=== PATIENT | female | born 1955 | race Caucasian/White ===

== ENCOUNTER → 2023-06-21 15:39 | Outpatient (CLI) | payer MEDICARE, OTHER, SELFPAY ==
--- NOTE | 2023-06-21 15:42 | DI.RAD.S_ITS ---
PROCEDURE: XR CHEST 2V INDICATIONS: ALMEIDA, eval for fluid collection or pna TECHNIQUE: 2 views of the chest were acquired. COMPARISON: None. FINDINGS: Surgical changes and devices: Cholecystectomy clips. Lungs and pleura: Moderate-sized right and trace left pleural effusions. Right basilar consolidation. No pneumothorax. Mediastinum: Mediastinal contours are normal. Heart size is normal. Bones and chest wall: No suspicious bony abnormalities. Soft tissues appear unremarkable. IMPRESSION: Moderate-sized right and trace left pleural effusions. Right basilar consolidation which could represent atelectasis, aspiration or pneumonia. Dictated by: Vero Moore MD, PhD on 06/21/2023 at 16:07 Approved by: Vero Moore MD, PhD on 06/21/2023 at 16:08
== END ==
PROVIDERS: Referring Provider Internal Medicine Critical Care Medicine; Visit Provider Internal Medicine Critical Care Medicine
DX: J90 Pleural effusion, not elsewhere classified (principal); J96.11 Chronic respiratory failure with hypoxia; J44.1 Chronic obstructive pulmonary disease with (acute) exacerbation; Z72.0 Tobacco use
CPT/HCPCS: 71046; 99214

== ENCOUNTER → 2023-06-22 08:21 | Outpatient (CLI) | payer MEDICARE, SELFPAY ==
--- NOTE | 2023-06-22 | PATH_ITS ---
Note [facility] Accession Number: [id number] TESTS RESULT FLAG UNITS REF RANGE LAB Clinician Provided Cytology Information No. of containers..01 Other (Miscellaneous) Source: PLEURAL FLUID DIAGNOSIS: PLEURAL FLUID NEGATIVE FOR MALIGNANT CELLS. THIS INTERPRETATION INCLUDES EVALUATION OF A CELL BLOCK. COMMENT: Dr. Carola Kimball (cytopathologist) reviewed this case and concurs with the diagnosis. Pathologist ICD10: J90 Signed out by: Johanne Driscoll MD, Pathologist NPI- [id number] Performed by: Len Daniels, Orthodontic Treatment Coordinator ([facility]) Gross description: 60 CC, YELLOW, CLOUDY RECEIVED: FRESH IN BLUE CAP CONTAINER.VO /VDU 06/26/2023 0555 Local FLAG LEGEND: L-Low Normal,H-High Normal,LL-Alert Low,HH-Alert High <-Panic Low,>-Panic High,A-Abnormal,AA-Critical Abnormal Performed at: 01 =Z [facility] [address], [place] [address] Kelvin López MD, Performed at: 01 [facility] [address], [place], [place] [id number] MD Kelvin López MD Phone: [phone]
--- NOTE | 2023-06-22 | DI.RAD.S_ITS ---
PROCEDURE: XR CHEST 2V INDICATIONS: POST THORACENTESIS TECHNIQUE: 2 views of the chest were acquired. COMPARISON: [facility], , XR CHEST 2V, 06/21/2023, 15:48. FINDINGS: Surgical changes and devices: None. Lungs and pleura: No right pneumothorax post thoracentesis. Small right pleural effusion, decreased. Small left pleural effusion. Mediastinum: Mediastinal contours are unchanged. Heart size is within normal limits. Bones and chest wall: No suspicious bony abnormalities. Soft tissues appear unremarkable. IMPRESSION: No pneumothorax post right thoracentesis. Small bilateral pleural effusions. Dictated by: Pranav Livingston M.D. on 06/22/2023 at 9:42 Approved by: Pranav Livingston M.D. on 06/22/2023 at 9:44
--- NOTE | 2023-06-22 08:30 | DI.US.S_ITS ---
PROCEDURE: US THORACENTESIS INDICATIONS: RIGHT PLEURAL EFFUSION TECHNIQUE: The indications, alternatives, benefits, risks, and complications of the procedure were explained to the patient. Written informed consent was obtained and placed in the chart. The chest was examined sonographically, and an appropriate site was chosen for thoracentesis. The skin was prepared and draped in the usual sterile fashion, and 1% lidocaine was infiltrated from the skin down through the pleural surface. A 19-gauge catheter-covered needle was then introduced into the pleural space, the catheter was advanced and the needle was withdrawn, and thereafter pleural fluid was aspirated. The catheter was then removed and a dressing was applied. COMPARISON: [facility], CR, XR CHEST 2V, 06/22/2023, 9:24. [facility], CR, XR CHEST 2V, 06/21/2023, 15:48. FINDINGS: Access site: Right hemithorax. Needle: One-Step centesis catheter with introducer needle. Fluid volume and description: Straw-colored 1725 cc. Fluid sent for diagnostic testing: Yes, multiple labs ordered. Medications: 1% lidocaine for local anaesthesia. Complications: None. Exam was well tolerated. Postprocedural chest x-ray is negative for pneumothorax. IMPRESSION: Successful ultrasound-guided diagnostic and therapeutic right thoracentesis. Dictated by: Pranav Livingston M.D. on 06/22/2023 at 10:46 Approved by: Pranav Livingston M.D. on 06/22/2023 at 10:48
[2023-06-22 11:14] LABS: Body Fluid Red Blood Cells 1157 /uL; Body Fluid Tot Nucleated Cells 1162 /uL
[2023-06-22 11:58] LABS: Body Fluid Appearance CLEAR; Body Fluid Color YELLOW
[2023-06-22 11:59] LABS: Body Fluid Clotted? NO CLOTS PRESENT; Eosinophils Body Fluid 0 %; Mononuclear WBC Body Fluid 89 %; Other Cells Body Fluid 0 %; Polynuclear WBC Body Fluid 11 %
[2023-06-23 03:09] LABS: Labcorp LDH, Body Fluid 70 IU/L (.); Labcorp Total Prot, Body Fluid 1.7 g/dL (.)
== END ==
PROVIDERS: Referring Provider Internal Medicine Critical Care Medicine; Visit Provider Internal Medicine Critical Care Medicine
DX: J90 Pleural effusion, not elsewhere classified (principal); J96.10 Chronic respiratory failure, unspecified whether with hypoxia or hypercapnia
CPT/HCPCS: 32555; 71046; 83615; 84157; 87070; 87075; 87205; 89051

== ENCOUNTER → 2023-06-29 14:09 | Outpatient (CLI) | payer OTHER, SELFPAY ==
--- NOTE | 2023-06-29 14:13 | DI.RAD.S_ITS ---
PROCEDURE: XR CHEST 2V INDICATIONS: Pleural effusion, s/p thoracentesis, eval for change TECHNIQUE: 2 views of the chest were acquired. COMPARISON: [facility], CR, XR CHEST 2V, 06/22/2023, 9:24. [facility], CR, XR CHEST 2V, 06/21/2023, 15:48. FINDINGS: Surgical changes and devices: None. Lungs and pleura: Lungs are somewhat atelectatic at each lung base, right greater than left. A subpulmonic left pleural effusion has slightly improved. A subpulmonic right pleural effusion has worsened with reference to the most recent comparison chest plain films dated . No pneumothorax. Mediastinum: Mediastinal contours are normal. Heart size is normal. Bones and chest wall: No suspicious bony abnormalities. Soft tissues appear unremarkable. IMPRESSION: Bilateral subpulmonic pleural effusions greater on the right than the left. This has somewhat worsened on the right and slightly improved on the left. No pneumothorax. It is unclear from the clinical history provided if a thoracentesis procedure was performed earlier same day. Dictated by: Max Esparza M.D. on 06/29/2023 at 15:13 Approved by: Max Esparza M.D. on 06/29/2023 at 15:15
[2023-06-29 16:06] LABS: Alanine Aminotransferase 26 IU/L (<35); Albumin 3.5 g/dL (3.5-5.0); Albumin Globulin Ratio 1.3 (1.0-2.8); Alkaline Phosphatase 98 U/L (38-126); Aspartate Aminotransferase 29 IU/L (14-36); BUN Creatinine Ratio 18.3 (6-22); Bilirubin Total 0.8 mg/dL (0.2-1.3); Blood Urea Nitrogen 15 mg/dL (7-17); Calcium 9.7 mg/dL (8.4-10.2); Carbon Dioxide 29 mmol/L (22-32); Chloride 98 mmol/L (98-107); Estimated Glomerular Filt Rate > 60 mL/min (>60); Globulin 2.8 g/dL (1.7-4.1); Glucose 358 mg/dL (80-110); HEMOLYSIS < 15 (0-50); Potassium 4.8 mmol/L (3.4-5.1); Sodium 137 mmol/L (137-145); Total Protein 6.3 g/dL (6.3-8.2)
== END ==
LOC: RAD 14:12
PROVIDERS: Referring Provider Internal Medicine Critical Care Medicine; Visit Provider Internal Medicine Critical Care Medicine
DX: J90 Pleural effusion, not elsewhere classified (principal)
CPT/HCPCS: 36415; 71046; 80053

== ENCOUNTER 2023-06-30 14:25 | Inpatient (IN) | payer OTHER, SELFPAY ==
[2023-06-30] VITALS (21 sets, daily range): BP systolic 121–163; BP diastolic 70–94; PULSE 99–116; RESP 0–30; TEMP 35.9; O2SAT 92–97; BMI 29.5; BMI 27.9
--- NOTE | 2023-06-30 14:40 | DI.RAD.S_ITS ---
PROCEDURE: XR CHEST 1V INDICATIONS: Short of breath hx of effusion TECHNIQUE: One view of the chest was acquired. COMPARISON: [facility], , XR CHEST 2V, 06/29/2023, 14:27. [facility], CR, XR CHEST 2V, 06/22/2023, 9:24. [facility], US, US THORACENTESIS, 06/22/2023, 8:46. [facility], CR, XR CHEST 2V, 06/21/2023, 15:48. FINDINGS: Surgical changes and devices: None. Lungs and pleura: There is a moderate right-sided pleural effusion. There is a small left-sided pleural effusion. Low lung volumes can be seen. Generalized interstitial prominence can be seen. On this semiupright study, no large pneumothorax can be seen. Mediastinum: Mediastinal contours appear normal. Heart size is moderately enlarged. Atherosclerotic calcification of the aortic arch is noted. Bones and chest wall: No suspicious bony lesions. Age-appropriate bony degenerative changes are seen. Overlying soft tissues appear unremarkable. IMPRESSION: Bilateral pleural effusions are seen, right larger than left. Cardiomegaly and interstitial prominence can be seen. CHF is suspected. Dictated by: Chace Hong M.D. on 06/30/2023 at 14:18 Approved by: Chace Hong M.D. on 06/30/2023 at 14:19
--- NOTE | 2023-06-30 14:54 | ED_ITS ---
HPI - General Adult <Amrik Vicente DO - Last Filed: 07/01/23 07:06> General Chief complaint: Shortness of Breath/Dyspnea Stated complaint: post fluid drained from lungs/needed again Time Seen by Provider: 06/30/23 14:34 Source: patient and family Mode of arrival: Wheelchair History of Present Illness HPI narrative: Patient is a 67-year-old female. She states that for the past several weeks/months she has been having issues with shortness of breath and pleural effusions. She states it all started several months ago when she developed pneumonia. She was treated with antibiotics. Patient is were not getting better. She does not have a primary doctor but she has seen pulmonology. One week ago she had a thoracentesis where approximately 1700 cc of fluid was removed. She states she felt better afterwards. Her next appointment with pulmonology is approximately 10 days from now. She had an outpatient chest x- ray done yesterday. Shows reaccumulation of fluid. She is having shortness of breath, dyspnea on exertion, orthopnea. No fevers. No cough. She does have oxygen at home however still short of breath despite this. Related Data Home Medications Medication Instructions Recorded Confirmed albuterol sulfate 90 mcg/actuation 2 puff inhalation Q4-6H PRN Dyspnea 06/21/23 06/30/23 aerosol inhaler (Ventolin HFA) budesonide 0.5 mg/2 mL suspension 0.5 mg inhalation BID 06/21/23 06/30/23 for nebulization metformin 500 mg tablet 500 mg PO BID 06/21/23 06/30/23 Previous Rx's Medication Instructions Recorded prednisone 10 mg tablet 10 mg PO DIRECTED #18 tabs 06/21/23 furosemide 20 mg tablet 20 mg PO DAILY #30 tabs 06/29/23 Allergies Allergy/AdvReac Type Severity Reaction Status Date / Time No Known Drug Allergies Allergy Unverified 06/29/23 13:07 Review of Systems <DO Fabián Becker Last Filed: 07/01/23 07:06> Review of Systems ROS Unobtainable: All systems reviewed & are unremarkable except as noted in HPI and below Patient History <DO Fabián Becker Last Filed: 07/01/23 07:06> Social History household members: significant other and family Smoking Status: Former smoker alcohol intake: current Smoking Status: Former smoker Substance Use Type: marijuana Exam <Amrik Vicente DO - Last Filed: 07/01/23 07:06> Initial Vital Signs Initial Vital Signs: Vital Signs Pulse Rate 116 H 06/30/23 14:31 Blood Pressure 150/86 H 06/30/23 14:31 Pulse Oximetry 93 06/30/23 14:31 HENMT Head: normal to inspection and normocephalic Resp Effort & Inspection: labored, no respiratory distress and tachypneic Cardio Rate: tachycardic Skin General: no rashes or lesions noted Neuro General: patient alert, patient awake and moves all extremities Extrem General: normal to inspection <Ravinder Avila MD - Last Filed: 07/01/23 01:09> Initial Vital Signs Initial Vital Signs: Vital Signs Pulse Rate 116 H 06/30/23 14:31 Blood Pressure 150/86 H 06/30/23 14:31 Pulse Oximetry 93 06/30/23 14:31 Course <Amrik Vicente DO - Last Filed: 07/01/23 07:06> Orders Ordered: Acetaminophen (Acetaminophen 325 Mg Tablet) 650 mg PO Q6H PRN PRN Reason: Fever/Mild Pain (1-3) Albuterol/Ipratropium (Albuterol/Ipratropium 3 Ml Ampul) 3 ml INH BID TAM Budesonide (Budesonide 0.5 Mg/2 Ml Neb) 0.5 mg INH BID TAM Docusate Sodium (Docusate 100 Mg Capsule) 100 mg PO BID PRN PRN Reason: constipation Enoxaparin Sodium (Enoxaparin 40 Mg/0.4 Ml Syringe) 40 mg SUBCUT DAILY TAM Furosemide (Furosemide 20 Mg Tablet) 60 mg PO DAILY TAM Magnesium Sulfate (Magnesium Sulfate) 2 gm in 50 mls @ 25 mls/hr IV NOW ONE Stop: 07/01/23 08:48 Influenza Virus Vaccine (Influenza Hd Vaccine 0.7 Ml Syringe) 0.7 ml IM .ONCE ONE Stop: 07/02/23 09:01 Metformin HCl (Metformin Hcl 500 Mg Tablet) 500 mg PO BIDWM TAM Naloxone HCl (Naloxone 0.4 Mg/Ml Vial) 0.2 mg IV Q2MIN PRN PRN Reason: Opiate Reversal Nicotine (Nicotine 21 Mg Patch) 21 mg TOP DAILY PRN PRN Reason: smoker Ondansetron HCl (Ondansetron 4 Mg Odt) 4 mg PO Q8HR PRN PRN Reason: Nausea And Vomiting Sennosides (Sennosides 8.6 Mg Tablet) 17.2 mg PO BEDTIME TAM Sodium Chloride (Sodium Chloride 0.9% Flush) 10 ml IV PRN PRN PRN Reason: Flush Sodium Chloride (Sodium Chloride 0.9% Flush) 10 ml IV BID TAM Discontinued Medications Furosemide 60 mg/ Sodium (Chloride) 56 mls @ 112 mls/hr IV NOW ONE Stop: 06/30/23 15:50 Last Infusion: 06/30/23 16:48 Dose: Infused Documented By: Admin: 06/30/23 16:10 Dose: 112 mls/hr Documented By: ANA Influenza Virus Vaccine (Influenza Hd Vaccine 0.7 Ml Syringe) 0.7 ml IM .ONCE ONE Stop: 07/01/23 00:55 Last Admin: 07/01/23 01:03 Dose: Not Given Documented By: BESSY Vital Signs Vital signs: Vital Signs - 8 hr 06/30/23 17:14 06/30/23 17:14 06/30/23 17:30 Pulse Rate 116 H 103 H Respiratory Rate 0 L 28 H Blood Pressure 137/86 Pulse Oximetry 95 96 06/30/23 17:30 06/30/23 18:00 06/30/23 18:00 Pulse Rate 103 H Respiratory Rate 29 H Blood Pressure 128/85 137/85 Pulse Oximetry 95 06/30/23 18:30 06/30/23 18:30 06/30/23 18:49 Pulse Rate 102 H Respiratory Rate 30 H Blood Pressure 147/88 H 129/94 H Pulse Oximetry 95 06/30/23 18:49 06/30/23 19:00 06/30/23 19:00 Pulse Rate 105 H 99 H Respiratory Rate 27 H Blood Pressure 128/77 Pulse Oximetry 94 94 06/30/23 19:30 06/30/23 19:30 06/30/23 20:00 Pulse Rate 101 H 105 H Respiratory Rate 30 H 28 H Blood Pressure 141/79 H Pulse Oximetry 94 92 06/30/23 20:00 06/30/23 20:30 06/30/23 20:30 Pulse Rate 105 H Respiratory Rate 25 H Blood Pressure 151/83 H 134/70 Pulse Oximetry 94 <Ravinder Avila MD - Last Filed: 07/01/23 01:09> Orders Ordered: Acetaminophen (Acetaminophen 325 Mg Tablet) 650 mg PO Q6H PRN PRN Reason: Fever/Mild Pain (1-3) Albuterol/Ipratropium (Albuterol/Ipratropium 3 Ml Ampul) 3 ml INH BID TAM Budesonide (Budesonide 0.5 Mg/2 Ml Neb) 0.5 mg INH BID TAM Docusate Sodium (Docusate 100 Mg Capsule) 100 mg PO BID PRN PRN Reason: constipation Enoxaparin Sodium (Enoxaparin 40 Mg/0.4 Ml Syringe) 40 mg SUBCUT DAILY TAM Furosemide (Furosemide 20 Mg Tablet) 60 mg PO DAILY TAM Magnesium Sulfate (Magnesium Sulfate) 2 gm in 50 mls @ 25 mls/hr IV NOW ONE Stop: 07/01/23 08:48 Influenza Virus Vaccine (Influenza Hd Vaccine 0.7 Ml Syringe) 0.7 ml IM .ONCE ONE Stop: 07/02/23 09:01 Metformin HCl (Metformin Hcl 500 Mg Tablet) 500 mg PO BIDWM TAM Naloxone HCl (Naloxone 0.4 Mg/Ml Vial) 0.2 mg IV Q2MIN PRN PRN Reason: Opiate Reversal Nicotine (Nicotine 21 Mg Patch) 21 mg TOP DAILY PRN PRN Reason: smoker Ondansetron HCl (Ondansetron 4 Mg Odt) 4 mg PO Q8HR PRN PRN Reason: Nausea And Vomiting Sennosides (Sennosides 8.6 Mg Tablet) 17.2 mg PO BEDTIME TAM Sodium Chloride (Sodium Chloride 0.9% Flush) 10 ml IV PRN PRN PRN Reason: Flush Sodium Chloride (Sodium Chloride 0.9% Flush) 10 ml IV BID TAM Discontinued Medications Furosemide 60 mg/ Sodium (Chloride) 56 mls @ 112 mls/hr IV NOW ONE Stop: 06/30/23 15:50 Last Infusion: 06/30/23 16:48 Dose: Infused Documented By: Admin: 06/30/23 16:10 Dose: 112 mls/hr Documented By: ANA Influenza Virus Vaccine (Influenza Hd Vaccine 0.7 Ml Syringe) 0.7 ml IM .ONCE ONE Stop: 07/01/23 00:55 Last Admin: 07/01/23 01:03 Dose: Not Given Documented By: BESSY Vital Signs Vital signs: Vital Signs - 8 hr 06/30/23 17:14 06/30/23 17:14 06/30/23 17:30 Pulse Rate 116 H 103 H Respiratory Rate 0 L 28 H Blood Pressure 137/86 Pulse Oximetry 95 96 06/30/23 17:30 06/30/23 18:00 06/30/23 18:00 Pulse Rate 103 H Respiratory Rate 29 H Blood Pressure 128/85 137/85 Pulse Oximetry 95 06/30/23 18:30 06/30/23 18:30 06/30/23 18:49 Pulse Rate 102 H Respiratory Rate 30 H Blood Pressure 147/88 H 129/94 H Pulse Oximetry 95 06/30/23 18:49 06/30/23 19:00 06/30/23 19:00 Pulse Rate 105 H 99 H Respiratory Rate 27 H Blood Pressure 128/77 Pulse Oximetry 94 94 06/30/23 19:30 06/30/23 19:30 06/30/23 20:00 Pulse Rate 101 H 105 H Respiratory Rate 30 H 28 H Blood Pressure 141/79 H Pulse Oximetry 94 92 06/30/23 20:00 06/30/23 20:30 06/30/23 20:30 Pulse Rate 105 H Respiratory Rate 25 H Blood Pressure 151/83 H 134/70 Pulse Oximetry 94 Medical Decision Making <Amrik Vicente DO - Last Filed: 07/01/23 07:06> Medical Records Medical records reviewed: Yes I reviewed the patient's medical records. Lab Data Lab results reviewed: Yes I reviewed the patient's lab results. 07/01/23 05:10 07/01/23 05:10 Labs: Lab Results 06/30/23 06/30/23 Range/Units 16:45 18:50 WBC 7.5 (4.5-11.0) X10^3/uL RBC 5.07 (4.0-5.2) X10^6/uL Hgb 14.8 (12.0-16.0) g/dL Hct 45.4 (36-46) % MCV 89.6 (80-100) fL MCH 29.3 (26-34) PG MCHC 32.6 (30-36) % RDW 14.7 (11.6-14.8) % Plt Count 256 (150-400) X10^3/uL Neut % (Auto) 69.2 (50-75) % Lymph % (Auto) 24.0 L (25-40) % Kern % (Auto) 5.4 (3-14) % Eos % (Auto) 0.9 L (2-4) % Baso % (Auto) 0.5 (0-2) % Neut # (Auto) 5200 (2441-5799) /uL Lymph # (Auto) 1800 (6267-3827) /uL Kern # (Auto) 400 (0-900) /uL Eos # (Auto) 100 (0-450) /uL Baso # (Auto) 0 (0-100) /uL PT 12.5 (9.4-12.5) SECONDS INR 1.1 (0.9-1.3) APTT 30 (25.1-36.5) SECONDS Sodium 138 (137-145) mmol/L Potassium 5.1 (3.4-5.1) mmol/L Chloride 99 (98-107) mmol/L Carbon Dioxide 31 (22-32) mmol/L BUN 14 (7-17) mg/dL Creatinine 0.88 (0.52-1.04) mg/dL Estimated GFR > 60 (>60) mL/min BUN/Creatinine Ratio 15.9 (6-22) Glucose 294 H (80-110) mg/dL Calcium 9.7 (8.4-10.2) mg/dL Total Bilirubin 0.8 (0.2-1.3) mg/dL AST 28 (14-36) IU/L ALT 28 (<35) IU/L Alkaline Phosphatase 105 (38-126) U/L Total Creatine Kinase 38 41 (30-135) U/L Troponin I 0.064 H 0.068 H (0.01-0.034) ng/mL NT-Pro-B Natriuret Pep 4810 H (<125) pg/mL Total Protein 6.9 (6.3-8.2) g/dL Albumin 3.7 (3.5-5.0) g/dL Globulin 3.2 (1.7-4.1) g/dL Albumin/Globulin Ratio 1.2 (1.0-2.8) Lipase 114 (23-300) U/L Imaging Data Chest x-ray: Radiologist's Impression: ROCEDURE: XR CHEST 1V INDICATIONS: Short of breath hx of effusion TECHNIQUE: One view of the chest was acquired. COMPARISON: [facility], CR, XR CHEST 2V, 06/29/2023, 14:27. [facility], CR, XR CHEST 2V, 06/22/2023, 9:24. [facility], US, US THORACENTESIS, 06/22/2023, 8:46. [facility], CR, XR CHEST 2V, 06/21/2023, 15:48. FINDINGS: Surgical changes and devices: None. Lungs and pleura: There is a moderate right-sided pleural effusion. There is a small left-sided pleural effusion. Low lung volumes can be seen. Generalized interstitial prominence can be seen. On this semiupright study, no large pneumothorax can be seen. Mediastinum: Mediastinal contours appear normal. Heart size is moderately enlarged. Atherosclerotic calcification of the aortic arch is noted. Bones and chest wall: No suspicious bony lesions. Age-appropriate bony degenerative changes are seen. Overlying soft tissues appear unremarkable. IMPRESSION: Bilateral pleural effusions are seen, right larger than left. Cardiomegaly and interstitial prominence can be seen. CHF is suspected. ECG Data Attestation: I personally reviewed and interpreted this ECG as follows: Interpretation: Sinus tachycardia Ventricular rate 106 Normal axis Normal QRS Normal QTC No ST T wave changes MDM Narrative Medical decision making narrative: Patient does have return of the pleural effusions. Review of the medical record shows that the fluid from the last thoracentesis shows it is transudative. There was some concern about CHF although the patient does not have a specific diagnosis of this. Her agent telegrapher started her on Lasix although today was the 1st day that she took this. She took 20 mg this morning. Patient is hypoxic on room air with oxygen saturations in the upper 80s. She was placed back on her oxygen at 2 L by nasal cannula. She was very dyspneic on exertion and has orthopnea. No lower extremity swelling. No chest discomfort. EKG shows no ischemic changes. Does have an elevation in her BNP. Troponin also slightly elevated however this very well could be because of fluid overload. I did discuss the case with on-call pulmonology. Unfortunately she does not rotate here at this facility. We do not have ability to obtain thoracentesis over the weekend. Did discuss the case with Dr. Min hospitalist on-call. He would like a repeat troponin and potentially admission to the hospital for diuresis and if patient does not improve then thoracentesis on Sunday. Care turned over to Dr. Avila to follow up on repeat troponin and disposition. <Ravinder Avila MD - Last Filed: 07/01/23 01:09> Differential Diagnosis Differential Diagnosis: Pneumonia, pneumothorax, pleural effusion, mass, viral syndrome Lab Data Lab results narrative: Diagnostic laboratory testing within normal limits/nonactionable. Labs: Lab Results 06/30/23 06/30/23 Range/Units 16:45 18:50 WBC 7.5 (4.5-11.0) X10^3/uL RBC 5.07 (4.0-5.2) X10^6/uL Hgb 14.8 (12.0-16.0) g/dL Hct 45.4 (36-46) % MCV 89.6 (80-100) fL MCH 29.3 (26-34) PG MCHC 32.6 (30-36) % RDW 14.7 (11.6-14.8) % Plt Count 256 (150-400) X10^3/uL Neut % (Auto) 69.2 (50-75) % Lymph % (Auto) 24.0 L (25-40) % Kern % (Auto) 5.4 (3-14) % Eos % (Auto) 0.9 L (2-4) % Baso % (Auto) 0.5 (0-2) % Neut # (Auto) 5200 (2753-6486) /uL Lymph # (Auto) 1800 (7426-2094) /uL Kern # (Auto) 400 (0-900) /uL Eos # (Auto) 100 (0-450) /uL Baso # (Auto) 0 (0-100) /uL PT 12.5 (9.4-12.5) SECONDS INR 1.1 (0.9-1.3) APTT 30 (25.1-36.5) SECONDS Sodium 138 (137-145) mmol/L Potassium 5.1 (3.4-5.1) mmol/L Chloride 99 (98-107) mmol/L Carbon Dioxide 31 (22-32) mmol/L BUN 14 (7-17) mg/dL Creatinine 0.88 (0.52-1.04) mg/dL Estimated GFR > 60 (>60) mL/min BUN/Creatinine Ratio 15.9 (6-22) Glucose 294 H (80-110) mg/dL Calcium 9.7 (8.4-10.2) mg/dL Total Bilirubin 0.8 (0.2-1.3) mg/dL AST 28 (14-36) IU/L ALT 28 (<35) IU/L Alkaline Phosphatase 105 (38-126) U/L Total Creatine Kinase 38 41 (30-135) U/L Troponin I 0.064 H 0.068 H (0.01-0.034) ng/mL NT-Pro-B Natriuret Pep 4810 H (<125) pg/mL Total Protein 6.9 (6.3-8.2) g/dL Albumin 3.7 (3.5-5.0) g/dL Globulin 3.2 (1.7-4.1) g/dL Albumin/Globulin Ratio 1.2 (1.0-2.8) Lipase 114 (23-300) U/L MDM Narrative Additional Information: Patient signed out from Dr. Vicente. Please see his note for continuity of care. Repeat troponin within normal limits and patient to be admitted here at [facility] for further evaluation and management. Discussed plan of care with patient and family. Patient stable at the time transfer to the floor Discharge Plan Departure Patient Disposition: Admitted As Inpatient Clinical Impression: Pleural effusion Dyspnea Qualifiers: Dyspnea type: unspecified Qualified Code(s): R06.00 - Dyspnea, unspecified Admit Date/Time: 06/30/23 20:46 Admit Provider: Dale Cano
[2023-06-30] MEDS: FUROSEMIDE 60 MG in SODIUM CHLORIDE 0.9% 50 ML 112 MG IV (16:10)
[2023-06-30 16:53] LABS: Add Manual Diff / Slide Review NO; Basophils Absolute Auto 0 /uL (0-100); Basophils Percent Auto 0.5 % (0-2); Eosinophils Absolute Auto 100 /uL (0-450); Eosinophils Percent Auto 0.9 % (2-4); Hematocrit 45.4 % (36-46); Hemoglobin 14.8 g/dL (12.0-16.0); Lymphocytes Absolute Auto 1800 /uL (1100-4500); Mean Corpuscular HGB Conc 32.6 % (30-36); Mean Corpuscular Hemoglobin 29.3 PG (26-34); Mean Corpuscular Volume 89.6 fL (80-100); Monocytes Absolute Auto 400 /uL (0-900); Monocytes Percent Auto 5.4 % (3-14); Neutrophils Absolute Auto 5200 /uL (1500-7000); Neutrophils Percent Auto 69.2 % (50-75); Platelet Count 256 X10^3/uL (150-400); Red Blood Cell Count 5.07 X10^6/uL (4.0-5.2); Red Cell Distribution Width 14.7 % (11.6-14.8); White Blood Cell Count 7.5 X10^3/uL (4.5-11.0)
[2023-06-30 17:00] LABS: INR 1.1 (0.9-1.3); Prothrombin Time 12.5 SECONDS (9.4-12.5)
[2023-06-30 17:03] LABS: Chloride 99 mmol/L (98-107); HEMOLYSIS < 15 (0-50); PTT Partial Thromboplastin Tim 30 SECONDS (25.1-36.5)
[2023-06-30 17:06] LABS: Alanine Aminotransferase 28 IU/L (<35); Albumin 3.7 g/dL (3.5-5.0); Albumin Globulin Ratio 1.2 (1.0-2.8); Alkaline Phosphatase 105 U/L (38-126); Aspartate Aminotransferase 28 IU/L (14-36); BUN Creatinine Ratio 15.9 (6-22); Bilirubin Total 0.8 mg/dL (0.2-1.3); Blood Urea Nitrogen 14 mg/dL (7-17); Calcium 9.7 mg/dL (8.4-10.2); Carbon Dioxide 31 mmol/L (22-32); Creatine Kinase 38 U/L (30-135); Estimated Glomerular Filt Rate > 60 mL/min (>60); Globulin 3.2 g/dL (1.7-4.1); Glucose 294 mg/dL (80-110); Lipase 114 U/L (23-300); Potassium 5.1 mmol/L (3.4-5.1); Sodium 138 mmol/L (137-145); Total Protein 6.9 g/dL (6.3-8.2)
[2023-06-30 17:17] LABS: NT-proBNP (BNP-Adult 18+) 4810 pg/mL (<125); Troponin I 0.064 ng/mL (0.01-0.034)
[2023-06-30 19:43] LABS: Creatine Kinase 41 U/L (30-135)
[2023-06-30 19:56] LABS: Troponin I 0.068 ng/mL (0.01-0.034)
--- NOTE | 2023-07-01 00:49 | PM.HP.1 ---
History of Present Illness History of Present Illness Chief complaint: post fluid drained from lungs/needed again Narrative: 67 y/o with PMH of smoking, HLD, DM, developed exertional dyspnea 2 months ago. It got progressively worse and she was seen in the outpatient clinic where she was prescribed albuterol and budesonide for suspected COPD or asthma. She did not have CXR or PFTs. Inhalers were not helpful. Referred to pulmonology, seen a week ago, diagnosed with Rt> lt pleural effusion, hypoxemia, sent home with oxygen and referred for thoracenthesis. > 1 L of transudate was removed, cytology was negative. Seen again by payloader machine operator who recommended PFTs once effusion improved, to determine if she really has COPD / asthma. She was suspected for CHF. Prescribed 20 mg of Lasix. Echocardiogram was recommended but pt did not have it done yet. Instead she is seen in the ED with worsening dyspnea, reaccumulating Rt pleural effusion. [facility] Social History household members: significant other and family Smoking Status: Former smoker alcohol intake: current Meds Home Medications and Allergies Home Medications Medication Instructions Recorded Confirmed Type albuterol sulfate 90 mcg/actuation 2 puff inhalation Q4-6H PRN Dyspnea 06/21/23 06/30/23 History aerosol inhaler (Ventolin HFA) budesonide 0.5 mg/2 mL suspension 0.5 mg inhalation BID 06/21/23 06/30/23 History for nebulization metformin 500 mg tablet 500 mg PO BID 06/21/23 06/30/23 History prednisone 10 mg tablet 10 mg PO DIRECTED #18 tabs 06/21/23 06/30/23 Rx furosemide 20 mg tablet 20 mg PO DAILY #30 tabs 06/29/23 06/30/23 Rx Allergies Allergy/AdvReac Type Severity Reaction Status Date / Time No Known Drug Allergies Allergy Unverified 06/29/23 13:07 Review of Systems Constitutional Comments: w/o sweats, fever, chills, weight changes Cardiovascular Comments: w/o palpitations or chest pain swollen legs Respiratory Comments: progressive exertional dyspnea and orthopnea without wheezing, coughing, hemoptysis Exam Vital Signs (past 8 hours): - 06/30/23 17:00 06/30/23 17:00 06/30/23 17:14 Temperature Pulse Rate 105 H 116 H Respiratory Rate 26 H 0 L Blood Pressure 147/88 H Pulse Oximetry 96 95 Oxygen Delivery Method Oxygen Flow Rate 06/30/23 17:14 06/30/23 17:30 06/30/23 17:30 Temperature Pulse Rate 103 H Respiratory Rate 28 H Blood Pressure 137/86 128/85 Pulse Oximetry 96 Oxygen Delivery Method Oxygen Flow Rate 06/30/23 18:00 06/30/23 18:00 06/30/23 18:30 Temperature Pulse Rate 103 H 102 H Respiratory Rate 29 H 30 H Blood Pressure 137/85 Pulse Oximetry 95 95 Oxygen Delivery Method Oxygen Flow Rate 06/30/23 18:30 06/30/23 18:49 06/30/23 18:49 Temperature Pulse Rate 105 H Respiratory Rate Blood Pressure 147/88 H 129/94 H Pulse Oximetry 94 Oxygen Delivery Method Oxygen Flow Rate 06/30/23 19:00 06/30/23 19:00 06/30/23 19:30 Temperature Pulse Rate 99 H 101 H Respiratory Rate 27 H 30 H Blood Pressure 128/77 Pulse Oximetry 94 94 Oxygen Delivery Method Oxygen Flow Rate 06/30/23 19:30 06/30/23 20:00 06/30/23 20:00 Temperature Pulse Rate 105 H Respiratory Rate 28 H Blood Pressure 141/79 H 151/83 H Pulse Oximetry 92 Oxygen Delivery Method Oxygen Flow Rate 06/30/23 20:30 06/30/23 20:30 06/30/23 21:00 Temperature Pulse Rate 105 H 106 H Respiratory Rate 25 H 23 Blood Pressure 134/70 Pulse Oximetry 94 94 Oxygen Delivery Method Oxygen Flow Rate 06/30/23 21:00 06/30/23 21:30 06/30/23 21:30 Temperature Pulse Rate 109 H Respiratory Rate 25 H Blood Pressure 136/82 163/90 H Pulse Oximetry 95 Oxygen Delivery Method Oxygen Flow Rate 06/30/23 22:25 06/30/23 23:00 Temperature 96.7 F L Pulse Rate 110 H Respiratory Rate 17 Blood Pressure 130/84 Pulse Oximetry 95 Oxygen Delivery Method Nasal Cannula Oxygen Flow Rate 2 Oxygen Delivery Method Nasal Cannula Oxygen Flow Rate 2 Const Other: in no distress, sitting in bed HENMT Other: NC with 2 L of O2 normocephalic Resp Other: at rest, on 2 L of oxygen, RR ~ 18 Not wheezy Cardio Other: regular, borderline tachycardic Neuro Other: w/o deficits Extrem Other: 1+ b/l lower leg edema Psych Other: lucid Objective Labs 06/30/23 16:45 06/30/23 16:45 Labs: Laboratory Results - last 24 hr 06/30/23 06/30/23 16:45 18:50 WBC 7.5 RBC 5.07 Hgb 14.8 Hct 45.4 MCV 89.6 MCH 29.3 MCHC 32.6 RDW 14.7 Plt Count 256 Neut % (Auto) 69.2 Lymph % (Auto) 24.0 L [place] % (Auto) 5.4 Eos % (Auto) 0.9 L Baso % (Auto) 0.5 Neut # (Auto) 5200 Lymph # (Auto) 1800 [place] # (Auto) 400 Eos # (Auto) 100 Baso # (Auto) 0 PT 12.5 INR 1.1 APTT 30 Sodium 138 Potassium 5.1 Chloride 99 Carbon Dioxide 31 BUN 14 Creatinine 0.88 Estimated GFR > 60 BUN/Creatinine Ratio 15.9 Glucose 294 H Calcium 9.7 Total Bilirubin 0.8 AST 28 ALT 28 Alkaline Phosphatase 105 Total Creatine Kinase 38 41 Troponin I 0.064 H 0.068 H NT-Pro-B Natriuret Pep 4810 H Total Protein 6.9 Albumin 3.7 Globulin 3.2 Albumin/Globulin Ratio 1.2 Lipase 114 Assessment & Plan Assessment and plan (1) Recurrent pleural effusion on right: Status: Acute Plan: - admitted for thoracenthesis with IR on Sunday (2) Acute hypoxemic respiratory failure: Status: Acute Plan: From effusion, possibly due to contributing COPD (3) Tobacco abuse: Status: Acute Plan: - referred to PFTs by payloader machine operator - suspected for COPD - continues with budesonide, duoneb and albuterol for now - nicotine replacement prn (4) Acute CHF: Status: Acute Plan: - echo on Sunday - diuresed with 60 mg of Lasix iv in the ED with > 1.5 L in the next few hours - prior to that she only took one or two 20 mg Lasix tabs - continuing with po Lasix 60 mg daily , starting on 07/01 (5) Diabetes mellitus: Status: Acute Plan: Metformin - A1C pending
--- NOTE | 2023-07-01 00:53 | PC.ADMIT ---
[facility] Admission Note: The patient,Coco Hong,67 y/o, was given written information regarding hospital policies, unit procedures and contact persons. Patient's smoking status: Former smoker. Vital Signs - 8 hr 06/30/23 17:00 06/30/23 17:00 06/30/23 17:14 Temperature Pulse Rate 105 H 116 H Respiratory Rate 26 H 0 L Blood Pressure 147/88 H Pulse Oximetry 96 95 Oxygen Delivery Method Oxygen Flow Rate 06/30/23 17:14 06/30/23 17:30 06/30/23 17:30 Temperature Pulse Rate 103 H Respiratory Rate 28 H Blood Pressure 137/86 128/85 Pulse Oximetry 96 Oxygen Delivery Method Oxygen Flow Rate 06/30/23 18:00 06/30/23 18:00 06/30/23 18:30 Temperature Pulse Rate 103 H 102 H Respiratory Rate 29 H 30 H Blood Pressure 137/85 Pulse Oximetry 95 95 Oxygen Delivery Method Oxygen Flow Rate 06/30/23 18:30 06/30/23 18:49 06/30/23 18:49 Temperature Pulse Rate 105 H Respiratory Rate Blood Pressure 147/88 H 129/94 H Pulse Oximetry 94 Oxygen Delivery Method Oxygen Flow Rate 06/30/23 19:00 06/30/23 19:00 06/30/23 19:30 Temperature Pulse Rate 99 H 101 H Respiratory Rate 27 H 30 H Blood Pressure 128/77 Pulse Oximetry 94 94 Oxygen Delivery Method Oxygen Flow Rate 06/30/23 19:30 06/30/23 20:00 06/30/23 20:00 Temperature Pulse Rate 105 H Respiratory Rate 28 H Blood Pressure 141/79 H 151/83 H Pulse Oximetry 92 Oxygen Delivery Method Oxygen Flow Rate 06/30/23 20:30 06/30/23 20:30 06/30/23 21:00 Temperature Pulse Rate 105 H 106 H Respiratory Rate 25 H 23 Blood Pressure 134/70 Pulse Oximetry 94 94 Oxygen Delivery Method Oxygen Flow Rate 06/30/23 21:00 06/30/23 21:30 06/30/23 21:30 Temperature Pulse Rate 109 H Respiratory Rate 25 H Blood Pressure 136/82 163/90 H Pulse Oximetry 95 Oxygen Delivery Method Oxygen Flow Rate 06/30/23 22:25 06/30/23 23:00 Temperature 96.7 F L Pulse Rate 110 H Respiratory Rate 17 Blood Pressure 130/84 Pulse Oximetry 95 Oxygen Delivery Method Nasal Cannula Oxygen Flow Rate 2 Patient admitted to room 215 from ER per stretcher but transferred into bed with 1 assist. Is alert and oriented. Initially with labored respirations but once settled with HOB elevated respirations non-labored and is on oxygen at 2L/min per NC (per home regimen) with O2 sat of 95%; on continuous oximetry. Does still become SOB with exertion but states it has much improved from earlier. HRR but tachy in low 100's but was SR on telemetry reading. Denied nausea. BT present and abdomen is soft. Is urinating without difficulty and denied dysuria. Received Lasix in ER and did have some frequency/urgency following and they reported UOP of 1400cc. Is independent with bed mobility. Reports she has had some difficulty with ambulation at home but denied use of AD although acknowledged that one may be beneficial. Instructed to call for assistance when needing to go to bathroom/get out of bed and she and sister (staying overnight) verbalized understanding. Bilateral calf SCD's applied. Denied pain. Noted to be diabetic and stated she has been on Metformin x 2 months but stated she has never had an A1c checked; Dr. Adkins informed and lab ordered; will check CBG's achs while in hospital. Fall risk score is moderate and bed alarm is activated at this time. Oriented to bed controls and call light. Reviewed plan of care with Dr. Adkins and patient.
--- NOTE | 2023-07-01 01:23 | DI.ECHO.S_ITS ---
[facility] +---------+ : : [address] : : : : [place], [place] : : : : [id number] : : : : Phone: [phone] Echocardiogram Report + + :Name: KYLE BLANCHARD Study Date: 07/02/2023 Height: 63 in : :[facility] ReadingLocation: Weight: 157 lb : : Gender: Female BSA: 1.7 m2 : :: 1955 Age: 67 yrs BP: 130/84 mmHg: :Reason For Study: congestive heart failure : : Performed By: Ale Nicolas : :Referring: UNSPECIFIED : + + Interpretation Summary 1) Mildly enlarged left ventricle wtih severely reduced systolic function (EF 20-25%). 2) Normal right ventricular size with mildly reduced function. 3) There is mild aortic stenosis. 4) There are moderate sided bilateral pleural effusions. 5) No prior Echo available for comparison. Procedure: A two-dimensional transthoracic echocardiogram with color flow and Doppler was performed. The study quality was technically good. There is no prior echocardiogram noted for this patient. The patient was in normal sinus rhythm during the exam. The heart rate ranged between 86-91 bpm during the study. Left Ventricle: There is a no left ventricular aneurysm. The left ventricle is mildly dilated. There is no thrombus. There is no ventricular septal defect visualized. The ejection fraction is estimated to be 20-25%. There is severe global hypokinesis of the left ventricle. Zuri II diastolic dysfunction. Right Ventricle: The right ventricle is normal size. Right ventricular systolic function is mildly reduced. Atria: The left atrium is mildly dilated. Right atrial size is normal. Mitral Valve: There is mild mitral annular calcification. The mitral valve leaflets appear mildly thickened, but open well. There is no mitral valve stenosis. There is trace mitral regurgitation. Aortic Valve: The aortic valve is trileaflet. The aortic valve is mildly calcified. There is mildly reduced leaflet mobility. There is mild aortic stenosis. No aortic regurgitation is present. Tricuspid Valve: The tricuspid valve leaflets are thin and pliable. There is a trace or physiologic amount of tricuspid regurgitation. Pulmonary artery pressures cannot be estimated because of the lack of a measurable TR jet velocity but the IVC suggests a CVP of around 3 mmHg. Pulmonic Valve: The pulmonic valve leaflets are thin and pliable; valve motion is normal. There is trace pulmonic regurgitation. Great Vessels: The aortic root is normal size. The aortic arch could not be visualized. The ascending aorta could not be visualized. The IVC is of normal diameter and collapses greater than 50% with a sniff. This suggests a low right atrial pressure of 3 mm Hg. Pericardium/ Pleura There is no pericardial effusion. There is a moderate right-sided pleural effusion. There is a moderate left-sided pleural effusion. MMode/2D Measurements & Calculations LVIDd: 5.3 cm LVOT diam: 2.0 cm LVIDs: 4.7 cm Ao root diam: 3.0 cm FS: 10.6 % EPSS: 2.0 cm IVSd: 0.80 cm LVPWd: 0.89 cm LV strauss. diameter/BSA (cm/m^2): 3.0 LV sys. diameter/BSA (cm/m^2): 2.7 LA A2 area: 23.7 cm2 RA long axis: 5.1 cm LA A4 area: 13.4 cm2 RA area: 14.3 cm2 LA length (vol): 4.8 cm RA vol: 33.8 ml LA vol: 56.6 ml RA : 19.4 ml/m2 LA vol index: 32.4 ml/m2 IVC diam: 1.6 cm RVD1 (basal): 3.8 cm TAPSE: 1.7 cm Doppler Measurements & Calculations Ao V2 max: 179.2 cm/sec LVOT Max Shad: 104.9 cm/sec Ao V2 mean: 134.8 cm/sec LV V1 max P.4 mmHg Ao max P.8 mmHg LV V1 VTI: 18.2 cm Ao mean P.9 mmHg VLADIMIR(I,D): 1.8 cm2 Ao V2 VTI: 31.6 cm VLADIMIR(V,D): 1.9 cm2 sev ratio: 0.58 VLADIMIR indexed to BSA (cm^2/m^2): 1.1 MV E max shad: 132.9 cm/sec PA V2 max: 66.1 cm/sec MV A max shad: 78.4 cm/sec PA V2 mean: 48.2 cm/sec MV E/A: 1.7 PA mean P.99 mmHg Med Peak E' Shad: 4.7 cm/sec PA pr(Accel): 36.6 mmHg E/E' med: 28.2 Lat Peak E' Shad: 4.1 cm/sec E/E' lat: 32.6 E/e' average: 30.4 MV dec time: 0.17 sec SV(LVOT): 57.9 ml Reading Physician:01:13 PM
[2023-07-01 02:00] VITALS: BP 128/88; PULSE 96; RESP 16; TEMP 36.7; O2SAT 96
[2023-07-01 06:10] LABS: Add Manual Diff / Slide Review NO; Basophils Absolute Auto 0 /uL (0-100); Basophils Percent Auto 0.4 % (0-2); Eosinophils Absolute Auto 100 /uL (0-450); Eosinophils Percent Auto 1.1 % (2-4); Hematocrit 43.1 % (36-46); Hemoglobin 14.2 g/dL (12.0-16.0); Lymphocytes Absolute Auto 1900 /uL (1100-4500); Lymphocytes Percent Auto 24.3 % (25-40); Mean Corpuscular HGB Conc 32.8 % (30-36); Mean Corpuscular Hemoglobin 29.3 PG (26-34); Mean Corpuscular Volume 89.4 fL (80-100); Monocytes Absolute Auto 600 /uL (0-900); Monocytes Percent Auto 7.1 % (3-14); Neutrophils Absolute Auto 5400 /uL (1500-7000); Neutrophils Percent Auto 67.1 % (50-75); Platelet Count 226 X10^3/uL (150-400); Red Blood Cell Count 4.83 X10^6/uL (4.0-5.2); Red Cell Distribution Width 14.8 % (11.6-14.8)
[2023-07-01 06:16] LABS: Hemoglobin A1C% w Est Avg Glu 12.4 % (4.0-6.0)
[2023-07-01 06:19] LABS: BUN Creatinine Ratio 17.2 (6-22); Blood Urea Nitrogen 16 mg/dL (7-17); Calcium 9.4 mg/dL (8.4-10.2); Carbon Dioxide 30 mmol/L (22-32); Chloride 100 mmol/L (98-107); Estimated Glomerular Filt Rate > 60 mL/min (>60); Glucose 254 mg/dL (80-110); HEMOLYSIS < 15 (0-50); Magnesium 1.4 mg/dL (1.6-2.3); Sodium 137 mmol/L (137-145)
[2023-07-01 06:25] LABS: NT-proBNP (BNP-Adult 18+) 5080 pg/mL (<125)
[2023-07-01 07:37] VITALS: BP 128/79; PULSE 105; RESP 28; TEMP 36.1; O2SAT 93
[2023-07-01] MEDS: MAGNESIUM SULFATE 2 GM/50 ML PIGGYBACK IV (07:58)
--- NOTE | 2023-07-01 08:01 | PM.PN.1 ---
Subjective Subjective Date Patient Seen: 07/01/23 Interval history: Pt reports some improvement in dyspnea since last night. O2 sat 91% on 2L. Exam Vital Signs (past 8 hours): - 07/01/23 02:00 07/01/23 07:37 Temperature 98.0 F 97.0 F L Pulse Rate 96 H 105 H Respiratory Rate 16 28 H Blood Pressure 128/88 128/79 Pulse Oximetry 96 93 Oxygen Flow Rate 2 2 Oxygen Delivery Method Nasal Cannula Oxygen Flow Rate 2 Narrative Exam Narrative: Gen: alert, pleasant, NAD Lungs: diminished mid to lower R > L with egophany and expiratory rhonchi CV: regular, slight systolic murmur, no rub Abd: non-distended Ext: no pitting edema Neuro: nl speech and affect Objective Labs 07/01/23 05:10 07/01/23 05:10 Labs: Laboratory Results - last 24 hr 06/30/23 06/30/23 07/01/23 16:45 18:50 05:10 WBC 7.5 8.0 RBC 5.07 4.83 Hgb 14.8 14.2 Hct 45.4 43.1 MCV 89.6 89.4 MCH 29.3 29.3 MCHC 32.6 32.8 RDW 14.7 14.8 Plt Count 256 226 Neut % (Auto) 69.2 67.1 Lymph % (Auto) 24.0 L 24.3 L [place] % (Auto) 5.4 7.1 Eos % (Auto) 0.9 L 1.1 L Baso % (Auto) 0.5 0.4 Neut # (Auto) 5200 5400 Lymph # (Auto) 1800 1900 [place] # (Auto) 400 600 Eos # (Auto) 100 100 Baso # (Auto) 0 0 PT 12.5 INR 1.1 APTT 30 Sodium 138 137 Potassium 5.1 4.0 Chloride 99 100 Carbon Dioxide 31 30 BUN 14 16 Creatinine 0.88 0.93 Estimated GFR > 60 > 60 BUN/Creatinine Ratio 15.9 17.2 Glucose 294 H 254 H Hemoglobin A1c 12.4 H Calcium 9.7 9.4 Magnesium 1.4 L Total Bilirubin 0.8 AST 28 ALT 28 Alkaline Phosphatase 105 Total Creatine Kinase 38 41 Troponin I 0.064 H 0.068 H NT-Pro-B Natriuret Pep 4810 H 5080 H Total Protein 6.9 Albumin 3.7 Globulin 3.2 Albumin/Globulin Ratio 1.2 Lipase 114 [facility] Social History household members: significant other and family Smoking Status: Former smoker alcohol intake: current Assessment & Plan Assessment & Plan narrative: 1. Acute CHF -pt presenting with recent dyspnea, bilat effusions on x-ray, N-BNP > 5000 -EKG: s. tach, septal NE, poss LAE -Lasix 80 mg IV bid + kcl 20 mEQ po bid -ECHO -daily BMP 2. Bilateral pleural effusions -likely CHF related, no evid of liver failure or hypoalbuminemia -pt had outpatient rt lung thoracentesis 06/22 which revealed transudate, neg cultures, not sure if cytology sent -follow effusions with repeat x-ray after sufficient diuresis, can hold off on repeat thoracentesis 3. Acute hypoxic respiratory failure. -manage with diuresis, as above 4. Type 2 diabetes, uncontrolled -A1C is 12.4% indicating poor control -start Lantus 20 units HS and Lispro med dose sliding scale -inc metformin to 1000 mg bid -Jardiance would be a good addition if ins covers 5. History of cigarette smoking -pt states quit 3 mo ago, has no sig alcohol use 6. Low magnesium -Mg sulfate IV -recheck daily DVT prevention: enoxaprin
[2023-07-01] MEDS: ALBUTEROL/IPRATROPIUM 3 ML AMPUL INH (08:49)
[2023-07-01 08:51] VITALS: PULSE 104; RESP 16; O2SAT 93
--- NOTE | 2023-07-01 09:06 | CM.DANOTE ---
Addendum entered by KATHERINE Herron 07/01/23 10:33: ADD: Per , diuresis helping pt make progress and currently no thoracentesis need at this time and will better manage her DM and then pt to have outpt f/u regarding likely new CHF. BF Original Note: Patient is a 67 yo female who was admitted on 06/30/23 for Fluid in lungs. [facility] and her PCP is [facility] at [facility] in [place]. EMR was reviewed. Per , pt with a hx of smoking and DM and recently referred to [facility] and had thoracentesis and back with more fluid build up and plan of thoracentesis Mon when IR available. CHF to be ruled out. SW met bedside with pt and explained role and pt confirms she lives in [place] with her spouse and sister and pt is active and independent at baseline. Pt has a cane at home but barely uses it, she drives and denies any hx of HH or SNF. Pt states her new symptoms of fluid build up have been limiting her on her activity due to SOB and fatigue but states with the current diuresis she is already starting to feel better. Pt denies any discharge planning needs at this time and confirms her spouse or sister can transport her home. Pt states her PCP is at [facility] in [place] which is a newer medical clinic. Plan: SW to follow after thoracentesis tomorrow Mon to confirm safe for d/c home with family and no further identified discharge planning needs. KATHERINE Herron Discharge Planning/Care Management CM Discharge Assessment Start: 07/01/23 09:05 Freq: Status: Active Protocol: Document 07/01/23 09:05 BF (Rec: 07/01/23 09:06 [id number]) Discharge Planning Assessment Assigned [employer] Straight[employer] KATHERINE Ladd DPOA/Assigned Designee Name informally spouse Advance Directives? No Advance Directives on File No History Provided By Patient,Medical Record Has Patient been admitted in last 30 No days? Prior Living Arrangements House Household Members significant other,family Comment Lives with spouse and sister Type of transporation used prior to Drives own vehicle admit Independent with ADL's Yes Is patient alert and oriented? Yes Caregiver for Another No DME Already Rented / Owned Cane Comment Cane but doesn't use much Barriers to Discharge No Discharge Plan Home Transportation Arrangement Family will provide transport at d/c Referrals Initiated None needed Whiteboard Updated in Patient Room with Yes name and ext. # of Rod Straightener Review Status In Process Please Provide Date Initial DC 07/01/23 Assessment Was Performed Next Review Type Continued Stay Review
[2023-07-01] MEDS: DOCUSATE 100 MG CAPSULE PO (09:11)
[2023-07-01] MEDS: ENOXAPARIN 40 MG/0.4 ML SYRINGE SUBCUT (09:12)
[2023-07-01] MEDS: METFORMIN HCL 500 MG TABLET 1000 MG PO ×2 (09:12→17:17)
[2023-07-01] MEDS: SODIUM CHLORIDE 0.9% FLUSH 10 ML IV ×2 (09:13→21:16)
[2023-07-01] MEDS: FUROSEMIDE 80 MG in SODIUM CHLORIDE 0.9% 50 ML 116 MG IV ×2 (10:59→21:16)
[2023-07-01 11:00] VITALS: BP 129/79; PULSE 100; RESP 24; TEMP 36.3; O2SAT 91
[2023-07-01] MEDS: INSULIN LISPRO 100 UNIT/ML 3ML VIAL SUBCUT ×2 (12:11→17:18)
[2023-07-01 15:00] VITALS: BP 123/68; PULSE 99; RESP 24; TEMP 36.1; O2SAT 92
[2023-07-01] MEDS: POTASSIUM CHLORIDE 20 MEQ TAB PO (17:17)
[2023-07-01 20:00] VITALS: BP 119/80; PULSE 108; RESP 17; TEMP 36.2; O2SAT 95
[2023-07-01] MEDS: INSULIN GLARGINE 100 UNIT/ML 3ML PEN 20 UNIT SUBCUT (21:16)
[2023-07-01] MEDS: SENNOSIDES 8.6 MG TABLET 17.2 MG PO (21:16)
[2023-07-02] VITALS (10 sets, daily range): BP systolic 110–126; BP diastolic 64–88; PULSE 74–100; RESP 16–28; TEMP 36–37; O2SAT 91–97
[2023-07-02 06:19] LABS: BUN Creatinine Ratio 17.8 (6-22); Blood Urea Nitrogen 18 mg/dL (7-17); Calcium 9.4 mg/dL (8.4-10.2); Carbon Dioxide 34 mmol/L (22-32); Chloride 99 mmol/L (98-107); Estimated Glomerular Filt Rate > 60 mL/min (>60); Glucose 100 mg/dL (80-110); HEMOLYSIS < 15 (0-50); Magnesium 1.6 mg/dL (1.6-2.3); Potassium 3.4 mmol/L (3.4-5.1); Sodium 139 mmol/L (137-145)
[2023-07-02 06:26] LABS: NT-proBNP (BNP-Adult 18+) 4360 pg/mL (<125)
[2023-07-02] MEDS: ALBUTEROL/IPRATROPIUM 3 ML AMPUL INH (11:19)
[2023-07-02] MEDS: POTASSIUM CHLORIDE 20 MEQ TAB PO ×2 (11:32→17:34)
[2023-07-02] MEDS: METFORMIN HCL 500 MG TABLET 1000 MG PO ×2 (11:32→17:34)
[2023-07-02] MEDS: ENOXAPARIN 40 MG/0.4 ML SYRINGE SUBCUT (11:32)
[2023-07-02] MEDS: MAGNESIUM CHLORIDE 64 MG TABLET 128 MG PO (11:33)
[2023-07-02] MEDS: SODIUM CHLORIDE 0.9% FLUSH 10 ML IV ×2 (11:33→20:11)
--- NOTE | 2023-07-02 11:45 | CM.DPC ---
DCP Cont: Per MD, pt was able to be weaned off oxygen after aggressive diuresis and lasix stopped and awaiting Echo today towards possible d/c later this afternoon pending Echo results. Currently no d/c needs identified. KATHERINE Herron
[2023-07-02] MEDS: LOSARTAN 25 MG TABLET PO (14:07)
[2023-07-02] MEDS: FUROSEMIDE 40 MG/4 ML VIAL IV ×2 (14:07→17:33)
[2023-07-02] MEDS: POTASSIUM CHLORIDE 20 MEQ TAB 40 MEQ PO (14:07)
[2023-07-02] MEDS: METOPROLOL ER 25 MG TABLET PO (14:08)
--- NOTE | 2023-07-02 15:21 | PM.PN.1 ---
Subjective Subjective Interval history: Echo showed EF of 20-25% with still mod bilat pleural effusions. Patient still on 2L. Spoke with patient about new CHF diagnosis and she is motivated to see cardiology and treat it. Minor with [facility] to arrange a fitting for tomorrow. Exam Vital Signs (past 8 hours): - 07/02/23 07:50 07/02/23 11:22 07/02/23 12:00 Temperature 97.3 F L 96.8 F L Pulse Rate 100 H 86 Respiratory Rate 28 H 20 Blood Pressure 125/74 124/64 Pulse Oximetry 91 92 93 Oxygen Delivery Method Nasal Cannula Oxygen Flow Rate 0 2 2 07/02/23 14:07 07/02/23 14:08 Temperature Pulse Rate Respiratory Rate Blood Pressure 124/64 124/64 Pulse Oximetry Oxygen Delivery Method Oxygen Flow Rate Fraction of Inspired Oxygen 28 Oxygen Delivery Method Nasal Cannula Oxygen Flow Rate 2 Narrative Exam Narrative: Gen: alert, pleasant, NAD Lungs: bibasilar rales, mild CV: regular, slight systolic murmur, no rub Abd: non-distended Ext: no pitting edema Neuro: nl speech and affect Objective Labs 07/01/23 05:10 07/02/23 05:20 Labs: Laboratory Results - last 24 hr 07/02/23 05:20 Sodium 139 Potassium 3.4 Chloride 99 Carbon Dioxide 34 H BUN 18 H Creatinine 1.01 Estimated GFR > 60 BUN/Creatinine Ratio 17.8 Glucose 100 D Calcium 9.4 Magnesium 1.6 NT-Pro-B Natriuret Pep 4360 H PFSH Social History household members: significant other and family Smoking Status: Former smoker alcohol intake: current Assessment & Plan Assessment & Plan narrative: 1. Newly diagnosed non-ischemic cardiomyopathy with EF 20-25% -pt presenting with recent dyspnea, bilat effusions on x-ray, N-BNP > 5000 -EKG: s. tach, septal NM, poss LAE -Lasix 80 mg IV bid initially, now on lasix 40mg IV BID -ECHO with EF 20-25%, mildly enlarged LV, mild , mildly reduced RV function -now diuresed 2L -patient qualifies for [facility], to be fitted on 07/03 -start metop XL 25mg daily and losartan 25mg daily 2. Bilateral pleural effusions -likely CHF related, no evid of liver failure or hypoalbuminemia -pt had outpatient rt lung thoracentesis 06/22 which revealed transudate, neg cultures, not sure if cytology sent -improved bibasilar crackles, patient less SOB 3. Acute hypoxic respiratory failure. -manage with diuresis, as above 4. Type 2 diabetes, uncontrolled -A1C is 12.4% indicating poor control -started Lantus 20 units HS and Lispro med dose sliding scale -inc metformin to 1000 mg bid -Jardiance would be a good addition if ins covers 5. History of cigarette smoking -pt states quit 3 mo ago, has no sig alcohol use 6. Low magnesium -Mg sulfate IV -recheck daily DVT prevention: enoxaparin Dispo: Likely home on 07/03 following further diuresis and [facility] fitting.
[2023-07-02] MEDS: INSULIN GLARGINE 100 UNIT/ML 3ML PEN 20 UNIT SUBCUT (20:10)
[2023-07-02] MEDS: SENNOSIDES 8.6 MG TABLET 17.2 MG PO (20:10)
[2023-07-03] VITALS (8 sets, daily range): BP systolic 97–121; BP diastolic 56–69; PULSE 75–92; RESP 16–20; TEMP 35.9–36.6; O2SAT 92–100
[2023-07-03 07:02] LABS: BUN Creatinine Ratio 19.2 (6-22); Blood Urea Nitrogen 19 mg/dL (7-17); Calcium 9.5 mg/dL (8.4-10.2); Carbon Dioxide 32 mmol/L (22-32); Chloride 100 mmol/L (98-107); Estimated Glomerular Filt Rate > 60 mL/min (>60); Glucose 61 mg/dL (80-110); HEMOLYSIS < 15 (0-50); Magnesium 1.5 mg/dL (1.6-2.3); Potassium 4.1 mmol/L (3.4-5.1); Sodium 139 mmol/L (137-145)
--- NOTE | 2023-07-03 07:36 | DI.RAD.S_ITS ---
PROCEDURE: XR CHEST 1V INDICATIONS: assess pleural effusions TECHNIQUE: One view of the chest was acquired. COMPARISON: [facility], CR, XR CHEST 1V, 06/30/2023, 14:57. FINDINGS: Surgical changes and devices: None. Lungs and pleura: Minimally improved although persistent mild right effusion. Persistent left effusion, minimally decreased. There is mild increased retrocardiac density compared to prior exam. Mediastinum: Mediastinal contours appear normal. Heart size is normal. Bones and chest wall: No suspicious bony lesions. Overlying soft tissues appear unremarkable. IMPRESSION: Mildly improved although persistent mild right effusion. Minimal improvement of left effusion. However, there is increased retrocardiac density which may indicate developing pneumonia/atelectasis or consolidated effusion. Dictated by: Ena Higginbotham M.D. on 07/03/2023 at 8:06 Approved by: Ena Higginbotham M.D. on 07/03/2023 at 8:07
[2023-07-03] MEDS: ENOXAPARIN 40 MG/0.4 ML SYRINGE SUBCUT (08:47)
[2023-07-03] MEDS: METOPROLOL ER 25 MG TABLET PO (08:47)
[2023-07-03] MEDS: POTASSIUM CHLORIDE 20 MEQ TAB PO ×2 (08:47→18:04)
[2023-07-03] MEDS: MAGNESIUM SULFATE 4 GM/100 ML PIGGYBACK IV (08:50)
[2023-07-03] MEDS: METFORMIN HCL 500 MG TABLET 1000 MG PO (08:51)
[2023-07-03] MEDS: LOSARTAN 25 MG TABLET PO (08:51)
[2023-07-03] MEDS: FUROSEMIDE 40 MG/4 ML VIAL IV ×2 (08:51→15:34)
[2023-07-03] MEDS: SODIUM CHLORIDE 0.9% FLUSH 10 ML IV ×2 (08:51→21:19)
[2023-07-03] MEDS: INFLUENZA HD VACCINE 0.7 ML SYRINGE IM (09:05)
--- NOTE | 2023-07-03 12:37 | PC.NURSE ---
Patient is A&OX4, lethargic this morning and reports lack of appetite for Breakfast. AM Blood glucose was 61 on labs, encouraged patient to drink orange juice and upon recheck was 65. MD notified and PM lantus decreased. Patient was able to eat a little bit of fruit and BG up to 100. She still declines appetite at lunch time and continues to fall back to sleep. She denies feeling sweaty, clammy, headache, dizzy or any other symptoms. Trialed patient on RA while she is lying in bed and 02 saturations on RA at rest are 85% to 92 %. Placed her back on 1 LNC.
[2023-07-03] MEDS: ONDANSETRON 4 MG ODT PO (14:20)
[2023-07-03] MEDS: DEXTROSE 10 % IN WATER 100 ML 1200 ML IV (16:06)
[2023-07-03] MEDS: METOCLOPRAMIDE 10 MG/2 ML INJ IV (18:04)
--- NOTE | 2023-07-03 18:06 | PM.PN.1 ---
Subjective Subjective Interval history: Patient having nausea and vomited once today. BG was low due to not eating at 71. Received dextrose and BG improved but nausea hasn't. Giving antiemetics. Exam Vital Signs (past 8 hours): - 07/03/23 11:58 07/03/23 14:26 07/03/23 16:00 Temperature 97.8 F 96.7 F L Pulse Rate 77 85 Respiratory Rate 18 18 Blood Pressure 108/69 121/67 Pulse Oximetry 92 98 97 Oxygen Delivery Method Nasal Cannula Oxygen Flow Rate 2 1.5 2 Fraction of Inspired Oxygen 28 Oxygen Delivery Method Nasal Cannula Oxygen Flow Rate 2 Narrative Exam Narrative: Gen: somnolent, nauseated Lungs: bibasilar rales, mild CV: regular, slight systolic murmur, no rub Abd: non-distended Ext: no pitting edema Neuro: nl speech and affect Objective Labs 07/01/23 05:10 07/03/23 06:05 Labs: Laboratory Results - last 24 hr 07/03/23 06:05 Sodium 139 Potassium 4.1 Chloride 100 Carbon Dioxide 32 BUN 19 H Creatinine 0.99 Estimated GFR > 60 BUN/Creatinine Ratio 19.2 Glucose 61 L Calcium 9.5 Magnesium 1.5 L PFSH Social History household members: significant other and family Smoking Status: Former smoker alcohol intake: current Assessment & Plan Assessment & Plan narrative: 1. Newly diagnosed non-ischemic cardiomyopathy with EF 20-25% -pt presenting with recent dyspnea, bilat effusions on x-ray, N-BNP > 5000 -EKG: s. tach, septal IL, poss LAE -Lasix 80 mg IV bid initially, now on lasix 40mg IV BID -ECHO with EF 20-25%, mildly enlarged LV, mild , mildly reduced RV function -now diuresed 2.2L -patient qualifies for Lifevest, was fitted on 07/03 and patient wearing it now -start metop XL 25mg daily and losartan 25mg daily 2. Bilateral pleural effusions -likely CHF related, no evid of liver failure or hypoalbuminemia -pt had outpatient rt lung thoracentesis 06/22 which revealed transudate, neg cultures, not sure if cytology sent -improved bibasilar crackles, patient less SOB 3. Acute hypoxic respiratory failure 2/2 CHF and COPD -manage with diuresis, as above -unable to wean off O2, likely due to underlying COPD 4. Type 2 diabetes, uncontrolled -A1C is 12.4% indicating poor control -started Lantus 20 units HS and Lispro med dose sliding scale -inc metformin to 1000 mg bid -Jardiance would be a good addition if ins covers -holding lantus and metformin due to hypoglycemia 5. History of cigarette smoking -pt states quit 3 mo ago, has no sig alcohol use 6. Low magnesium -Mg sulfate IV -recheck daily 7. Acute nausea and vomiting -unclear cause, possibly from raising metformin dose -antiemetics PRN DVT prevention: enoxaparin Dispo: Likely home on 07/04 following improvement in [place].
[2023-07-03] MEDS: ONDANSETRON 4 MG/2 ML INJ IV (21:22)
[2023-07-04] VITALS: BP 97/61; PULSE 86; RESP 16; TEMP 35.9; O2SAT 94
[2023-07-04 04:00] VITALS: BP 97/56; PULSE 79; RESP 16; TEMP 36.8; O2SAT 96
--- NOTE | 2023-07-04 04:01 | PC.NURSE ---
When walking to the bathroom, patient removed nasal cannula. When back in bed, patient at 76% SaO2, coming up to 92% with oxygen back on. This RN educated patient on importance of using oxygen at all times, especially with ambulation. Patient verbalized understanding.
[2023-07-04 06:57] LABS: Add Manual Diff / Slide Review NO; Basophils Absolute Auto 0 /uL (0-100); Basophils Percent Auto 0.4 % (0-2); Eosinophils Absolute Auto 100 /uL (0-450); Eosinophils Percent Auto 1.3 % (2-4); Hematocrit 46.8 % (36-46); Hemoglobin 15.4 g/dL (12.0-16.0); Lymphocytes Absolute Auto 1000 /uL (1100-4500); Lymphocytes Percent Auto 12.3 % (25-40); Mean Corpuscular HGB Conc 32.8 % (30-36); Mean Corpuscular Hemoglobin 29.7 PG (26-34); Mean Corpuscular Volume 90.6 fL (80-100); Monocytes Absolute Auto 500 /uL (0-900); Monocytes Percent Auto 5.7 % (3-14); Neutrophils Absolute Auto 6700 /uL (1500-7000); Neutrophils Percent Auto 80.3 % (50-75); Platelet Count 270 X10^3/uL (150-400); Red Blood Cell Count 5.16 X10^6/uL (4.0-5.2); Red Cell Distribution Width 14.8 % (11.6-14.8); White Blood Cell Count 8.3 X10^3/uL (4.5-11.0)
[2023-07-04 07:11] LABS: BUN Creatinine Ratio 18.3 (6-22); Blood Urea Nitrogen 21 mg/dL (7-17); Calcium 9.1 mg/dL (8.4-10.2); Carbon Dioxide 30 mmol/L (22-32); Chloride 94 mmol/L (98-107); Estimated Glomerular Filt Rate 52 mL/min (>60); Glucose 151 mg/dL (80-110); HEMOLYSIS < 15 (0-50); Magnesium 2.2 mg/dL (1.6-2.3); Potassium 5.5 mmol/L (3.4-5.1); Sodium 134 mmol/L (137-145)
[2023-07-04 08:00] VITALS: BP 126/67; PULSE 89; RESP 16; TEMP 36.7; O2SAT 95
[2023-07-04] MEDS: ENOXAPARIN 40 MG/0.4 ML SYRINGE SUBCUT (09:48)
[2023-07-04] MEDS: SODIUM CHLORIDE 0.9% FLUSH 10 ML IV ×2 (09:49→13:34)
[2023-07-04] MEDS: SODIUM ZIRCONIUM CYCLOSILICATE 10 GM POWD.PACK PO ×2 (09:49→13:32)
[2023-07-04] MEDS: SODIUM CHLORIDE 0.9% 500 ML IV (09:49)
[2023-07-04] MEDS: METOPROLOL ER 25 MG TABLET 12.5 MG PO (09:49)
[2023-07-04 10:29] LABS: Blood Urea Nitrogen 23 mg/dL (7-17); Carbon Dioxide 30 mmol/L (22-32); Chloride 94 mmol/L (98-107); Estimated Glomerular Filt Rate 52 mL/min (>60); Glucose 199 mg/dL (80-110); HEMOLYSIS < 15 (0-50); Sodium 134 mmol/L (137-145)
[2023-07-04 10:31] LABS: Potassium 5.4 mmol/L (3.4-5.1)
--- NOTE | 2023-07-04 10:32 | CM.DPNOTE ---
DCP Cont According to discussion in multi-disciplinary rounds, patient will likely be discharged home today. Patient will leave with her life vest on, fitted .03.18, and with cardiology follow up scheduled. No CM team needs identified upon patient's anticipated discharge. JW
[2023-07-04 12:00] VITALS: BP 98/55; PULSE 83; RESP 16; TEMP 36.8; O2SAT 95
[2023-07-04] MEDS: SODIUM CHLORIDE 0.9% 500 ML 250 ML IV (13:33)
--- NOTE | 2023-07-04 15:26 | PM.DS.1 ---
History of Present Illness History of Present Illness Chief complaint: post fluid drained from lungs/needed again Narrative: 67 y/o with PMH of smoking, HLD, DM, developed exertional dyspnea 2 months ago. It got progressively worse and she was seen in the outpatient clinic where she was prescribed albuterol and budesonide for suspected COPD or asthma. She did not have CXR or PFTs. Inhalers were not helpful. Referred to pulmonology, seen a week ago, diagnosed with Rt> lt pleural effusion, hypoxemia, sent home with oxygen and referred for thoracenthesis. > 1 L of transudate was removed, cytology was negative. Seen again by nail kegger who recommended PFTs once effusion improved, to determine if she really has COPD / asthma. She was suspected for CHF. Prescribed 20 mg of Lasix. Echocardiogram was recommended but pt did not have it done yet. Instead she is seen in the ED with worsening dyspnea, reaccumulating Rt pleural effusion. Discharge Providers Provider Date of admission: 06/30/23 20:46 Discharge Date: 07/04/23 Primary care physician: Doctor Delgado, Discharge provider: Tonio Washington DO Summary Hospital Course Discharge Diagnosis: 1. Newly diagnosed non-ischemic cardiomyopathy with EF 20-25% -pt presenting with recent dyspnea, bilat effusions on x-ray, N-BNP > 5000 -admitted to previous cocaine and meth use several months ago -EKG: s. tach, septal [place], poss LAE -Lasix 80 mg IV bid initially, now on lasix 40mg IV BID -ECHO with EF 20-25%, mildly enlarged LV, mild , mildly reduced RV function -now diuresed 2.2L -patient qualifies for Lifevest, was fitted on 07/03 and patient wearing it now -start metop XL 25mg daily and losartan 25mg daily -setup outpatient cardiology appt with Dr. Hilliard on 07/13 -patient to get labs checked on 07/09, instructed her to not start lasix until she see's cardiology -she will get a PCP 2. Bilateral pleural effusions -likely CHF related, no evid of liver failure or hypoalbuminemia -pt had outpatient rt lung thoracentesis 06/22 which revealed transudate, neg cultures, not sure if cytology sent -improved bibasilar crackles, patient less SOB 3. Acute hypoxic respiratory failure 2/2 CHF and COPD -manage with diuresis, as above -unable to wean off O2, likely due to underlying COPD -continue home O2 at 2L at rest 4. Type 2 diabetes, uncontrolled -A1C is 12.4% indicating poor control -started Lantus 20 units HS and Lispro med dose sliding scale -inc metformin to 1000 mg bid -Jardiance would be a good addition if ins covers -holding lantus and metformin due to hypoglycemia 5. History of cigarette smoking -pt states quit 3 mo ago, has no sig alcohol use 6. Low magnesium -Mg sulfate IV -recheck daily 7. Acute nausea and vomiting -unclear cause, possibly from raising metformin dose -antiemetics PRN Hospital Course: Admitted for worsening SOB. Found to have bilateral pleural effusions, elevated BNP of 5k and requiring 2-3L NC. Echo showed EF 20-25%. 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 Diuiresed off 2L and breathing improved, but unable to wean off O2. Patient started on losartan and metoprolol XL. Referral to cardiology placed and has appt on 07/13. Patient still needs to get a PCP which she will do. She already has home O2 so will resume that. Sent script for lasix, but instructed her not to start until she see's cardiology. Exam Vital Signs (past 8 hours): - 07/03/23 08:00 07/03/23 11:58 07/03/23 14:26 Temperature 97.1 F L 97.8 F Pulse Rate 75 77 Respiratory Rate 20 18 Blood Pressure 97/56 L 108/69 Pulse Oximetry 93 92 98 Oxygen Delivery Method Nasal Cannula Oxygen Flow Rate 3 2 1.5 Fraction of Inspired Oxygen 28 Oxygen Delivery Method Nasal Cannula Oxygen Flow Rate 1.5 Narrative Exam Narrative: Gen: alert and looks well today Lungs: bibasilar rales resolved CV: regular, slight systolic murmur, no rub Abd: non-distended Ext: no pitting edema Neuro: nl speech and affect Objective Labs 07/04/23 06:15 07/04/23 15:03 Labs: Laboratory Results - last 24 hr 07/03/23 06:05 Sodium 139 Potassium 4.1 Chloride 100 Carbon Dioxide 32 BUN 19 H Creatinine 0.99 Estimated GFR > 60 BUN/Creatinine Ratio 19.2 Glucose 61 L Calcium 9.5 Magnesium 1.5 L PFSH Social History household members: significant other and family Smoking Status: Former smoker alcohol intake: current Discharge Plan Discharge Plan Patient Disposition: Home Provider Discharge Comment: You were unfortunately diagnosed with congestive heart failure. Your heart function is 20-25% (normal is 50-55%). We gave you lasix to get fluid off of your lungs and improve your breathing. You are now on new heart medications for your CHF. I've also raised your metformin because your diabetes needs to be under better control. We arranged an cardiology appointment for you. Don't start your lasix until you see cardiology. You will still need to find a new PCP to help manage your diabetes and coordinate your care among all your specialists. Dr. Washington Discharge orders & Medications Prescriptions: New metformin 1,000 mg tablet 1,000 mg PO BIDWMEAL Qty: 60 0RF furosemide [Lasix] 40 mg tablet 40 mg PO DAILY Qty: 30 0RF losartan 25 mg Tablet 25 mg PO DAILY Qty: 30 0RF metoprolol succinate 25 mg Tablet Extended Release 24 Hr 25 mg PO DAILY Qty: 30 0RF Continued budesonide 0.5 mg/2 mL suspension for nebulization 0.5 mg inhalation BID albuterol sulfate [Ventolin HFA] 90 mcg/actuation HFA aerosol inhaler 2 puff inhalation Q4-6H PRN (Reason: Dyspnea) prednisone 10 mg tablet 10 mg PO DIRECTED Qty: 18 0RF Rx Instructions: Take 3 tabs every morning for 3 days, then 2 tabs every morning for 3 days, then 1 tab every morning for 3 days Discontinued furosemide 20 mg tablet 20 mg PO DAILY Qty: 30 2RF metformin 500 mg tablet 500 mg PO BID Follow up/Referrals: Miscellaneous,DoctorMD [Primary Care Provider] - Hilton Hilliard MD [Physician] - 07/13/23 3:20 pm (07/13 @ 3:20 (arrive @ 3:05) with Dr Hilliard @ [address] [place] [address] ) Other Ambulatory Orders: Referral to: (Schedule) Timeframe: 1 Week Location: Outside Services Ordered By: Tonio Washington Basic Metabolic Panel (Urgent) Timeframe: 5 Days Facility: [facility] - Location: Laboratory Ordered By: Tonio Washington Visit Report/Discharge Packet Stand Alone Forms: Patient Portal/API, Stroke Signs & Symptoms Discharge Data Primary Care Provider: Miscellaneous,Doctor
[2023-07-04 15:30] LABS: BUN Creatinine Ratio 22.5 (6-22); Blood Urea Nitrogen 25 mg/dL (7-17); Calcium 8.8 mg/dL (8.4-10.2); Carbon Dioxide 31 mmol/L (22-32); Chloride 94 mmol/L (98-107); Estimated Glomerular Filt Rate 54 mL/min (>60); Glucose 188 mg/dL (80-110); HEMOLYSIS 30 (0-50); Potassium 4.4 mmol/L (3.4-5.1); Sodium 134 mmol/L (137-145)
--- NOTE | 2023-07-04 16:49 | PC.NURSE ---
Discharge note: Discharge instructions given to patient, discussed importance of new medication Rx adherence, signs of worsening symptoms, F/U with Dr. Hilliard on 07/13, and dietary and life style modifications. Educated on the importance of daily weight, establishing a primary care provider, and provided heart failure guideline for home use. Both patient and Sister Kaylie verbalized understanding of discharge instructions. Home via private vehicle, accompanied by Sister. Rx's to be picked up at [place] on way home.
== END 2023-07-04 16:15 | disposition home or self-care (01) | DRG 314 ==
LOC: ED 17:55 → AC 20:48
PROVIDERS: Emergency Medicine; Internal Medicine; Student in an Organized Health Care Education/Training Program; Admitting Provider Internal Medicine; Emergency Provider Emergency Medicine; Referring Provider Emergency Medicine; Visit Provider Internal Medicine
DX: I42.7 Cardiomyopathy due to drug and external agent (principal); J96.01 Acute respiratory failure with hypoxia; J44.9 Chronic obstructive pulmonary disease, unspecified; E83.42 Hypomagnesemia; R11.2 Nausea with vomiting, unspecified; T43.625A Adverse effect of amphetamines, initial encounter; I50.9 Heart failure, unspecified; E11.65 Type 2 diabetes mellitus with hyperglycemia; Z23 Encounter for immunization; Z79.84 Long term (current) use of oral hypoglycemic drugs; Z87.891 Personal history of nicotine dependence
CPT/HCPCS: 36415; 71045; 71046; 80048; 80053; 82550; 82962; 83036; 83690; 83735; 83880; 84484; 85025; 85610; 85730; 90471; 90662; 93005; 93306; 94640; 94762; 96365; 99215; 99284; J1650; J1815; J1940; J2405; J2765; J3475

== ENCOUNTER → 2023-07-26 14:58 | Outpatient (CLI) | payer MEDICARE, SELFPAY ==
[2023-06-30 22:30] VITALS: BMI 27.9
--- NOTE | 2023-07-26 15:04 | DI.RAD.S_ITS ---
PROCEDURE: XR CHEST 2V INDICATIONS: Shortness of breath TECHNIQUE: 2 views of the chest were acquired. COMPARISON: [facility], CR, XR CHEST 1V, 07/03/2023, 7:47. FINDINGS: Surgical changes and devices: None. Lungs and pleura: Slight interval increase in right pleural effusion, moderately large, with compressive atelectasis in the right lung base. Development of minimal left pleural effusion. Mild interstitial pulmonary edema. Mediastinum: Mediastinal contours are normal. Mild cardiomegaly. Bones and chest wall: No suspicious bony abnormalities. Soft tissues appear unremarkable. IMPRESSION: Worsening congestive heart failure. Dictated by: Donald Hebert M.D. on 07/26/2023 at 16:51 Approved by: Donald Hebert M.D. on 07/26/2023 at 16:52
[2023-07-26 17:04] LABS: BUN Creatinine Ratio 12.6 (6-22); Blood Urea Nitrogen 11 mg/dL (7-17); Calcium 9.2 mg/dL (8.4-10.2); Carbon Dioxide 29 mmol/L (22-32); Chloride 104 mmol/L (98-107); Estimated Glomerular Filt Rate > 60 mL/min (>60); Glucose 187 mg/dL (80-110); HEMOLYSIS < 15 (0-50); Potassium 4.5 mmol/L (3.4-5.1); Sodium 140 mmol/L (137-145)
== END ==
PROVIDERS: Student in an Organized Health Care Education/Training Program; PCP Internal Medicine Critical Care Medicine; Referring Provider Internal Medicine Cardiovascular Disease; Visit Provider Internal Medicine Cardiovascular Disease
DX: I50.22 Chronic systolic (congestive) heart failure (principal); J90 Pleural effusion, not elsewhere classified; J96.01 Acute respiratory failure with hypoxia; E87.5 Hyperkalemia
CPT/HCPCS: 36415; 71046; 80048; 99215

== ENCOUNTER → 2023-08-07 10:52 | Outpatient (CLI) | payer MEDICARE, SELFPAY ==
[2023-06-30 22:30] VITALS: BMI 27.9
[2023-08-07 12:52] LABS: BUN Creatinine Ratio 19.4 (6-22); Blood Urea Nitrogen 18 mg/dL (7-17); Calcium 9.5 mg/dL (8.4-10.2); Carbon Dioxide 32 mmol/L (22-32); Chloride 100 mmol/L (98-107); Estimated Glomerular Filt Rate > 60 mL/min (>60); Glucose 231 mg/dL (80-110); HEMOLYSIS 50 (0-50); Potassium 4.5 mmol/L (3.4-5.1); Sodium 140 mmol/L (137-145)
[2023-08-07 13:01] LABS: NT-proBNP (BNP-Adult 18+) 1560 pg/mL (<125)
== END ==
PROVIDERS: PCP Internal Medicine Critical Care Medicine; Referring Provider Internal Medicine Cardiovascular Disease; Visit Provider Internal Medicine Cardiovascular Disease
DX: R06.09 Other forms of dyspnea (principal); I10 Essential (primary) hypertension
CPT/HCPCS: 36415; 80048; 83880

== ENCOUNTER → 2023-10-24 15:09 | Outpatient (CLI) | payer MEDICARE, MEDICAID, SELFPAY ==
[2023-06-30 22:30] VITALS: BMI 27.9
--- NOTE | 2023-10-24 15:11 | DI.RAD.S_ITS ---
PROCEDURE: XR DEXA AXIAL SKELETON INDICATIONS: Bone Density Screening Routine Screening COMPARISON: None. FINDINGS: Lumbar Spine: Bone mineral density 1.146 g/cm2, T score 0.9, normal. Left Hip: Bone mineral density 0.910 g/cm2, T score -0.3, normal. Left Femoral Neck: Bone mineral density is 0.766 g/cm2, T score -0.7, normal. Right Hip: Bone mineral density is 0.875 g/cm2, T score -0.6, normal. Right Femoral Neck: Bone mineral density is 0.794 g/cm2, T score -0.5, normal. Fracture Risk Calculation (when applicable): Cannot be calculated due to normal bone mineral density. (T score greater or equal to -1.0 to: NORMAL) (T score from -1.1 to -2.4: OSTEOPENIA) (T score less than or equal to -2.5: OSTEOPOROSIS) IMPRESSION: Normal bone mineral density. Follow-up guidelines as follows: Osteoporosis: Consider a repeat DEXA and Vertebral Fracture Assessment (VFA) exam in 2 years or sooner if medically necessary, to reassess this patient's status. Osteopenia: Consider a repeat DEXA in 2-3 years to reassess this patient's status, or if there is a new clinical indication. Normal: Consider a repeat DEXA in 5 years or sooner, or if there is a new clinical indication. Dictated by: Willem Langston M.D. on 10/24/2023 at 16:42 Approved by: Willem Langston M.D. on 10/24/2023 at 16:43
--- NOTE | 2023-10-24 15:12 | DI.MG.S_ITS ---
BILATERAL DIGITAL SCREENING MAMMOGRAM 3D/2D WITH CAD: 10/24/2023 CLINICAL: Baseline exam. Routine screening. Family history of breast cancer. No prior exams were available for comparison. Both breasts are heterogeneously dense, which may obscure small masses (category c / 51-75% glandular tissue). Current study was also evaluated with a Computer Aided Detection (CAD) system. There is a focal asymmetry in the left breast at 1 o'clock anterior depth. No other significant masses, calcifications, or other findings are seen in either breast. IMPRESSION: INCOMPLETE: NEEDS ADDITIONAL IMAGING EVALUATION The focal asymmetry in the left breast is indeterminate. Additional views with possible ultrasound are recommended. Incidentally noted bilateral inverted nipples. Clinical evaluation recommended. Additional views with possible ultrasound are recommended. Based on the Tyrer Cuzick model (a risk assessment model) the patient's lifetime risk is 7.7% and her 10 year risk is 4.5%. According to the ACR, ACS, and NCCN guidelines, an annual breast MRI exam along with mammogram is recommended if the patient's lifetime risk is 20% or greater. This exam was interpreted at Station ID: [id number]. NOTE: For mammograms, a report in lay terms will be sent to the patient. Approximately 15% of breast malignancies will not be visualized mammographically. In the management of a palpable breast mass, a negative mammogram must not discourage biopsy of a clinically suspicious lesion. Electronically Signed By: Kevin Ventura M.D. lc/:10/25/2023 08:27:31 letter sent: Additional Imaging Needed ACR BI-RADS Category 0: Incomplete 3340F
== END ==
PROVIDERS: PCP Student in an Organized Health Care Education/Training Program; Referring Provider Physician Assistant; Visit Provider Physician Assistant
DX: Z80.3 Family history of malignant neoplasm of breast (principal); Z12.31 Encounter for screening mammogram for malignant neoplasm of breast; R92.333 Mammographic heterogeneous density, bilateral breasts; Z78.0 Asymptomatic menopausal state
CPT/HCPCS: 77063; 77067; 77080

== ENCOUNTER → 2023-11-15 10:14 | Outpatient (CLI) | payer MEDICARE, MEDICAID, SELFPAY ==
[2023-06-30 22:30] VITALS: BMI 27.9
--- NOTE | 2023-11-15 | DI.US.S_ITS ---
LIMITED ULTRASOUND OF LEFT BREAST: 11/15/2023 CLINICAL: Patient returns today to evaluate a focal asymmetry in the left breast. Comparison is made to exams dated: 11/15/2023 mammogram and 10/24/2023 mammogram - [facility]. Color flow and real-time ultrasound of the left breast 1 o'clock region were performed. Van scale images of the real-time examination were reviewed. No sonographic correlate for the focal asymmetry seen on same day mammogram. Range Aid images taken at 1 o'clock, 4 cm from the nipple. IMPRESSION: PROBABLY BENIGN Left breast focal asymmetry at 1 o'clock anterior depth seen initially on baseline mammogram without ultrasound correlate. Finding is probably benign. A follow-up mammogram in 6 months is recommended to demonstrate stability. Findings and recommendations were conveyed to the patient during today's evaluation. This exam was interpreted at Station ID: [id number]. Electronically Signed By: Rosetta Dia M.D., Ph.D. eb/:11/15/2023 11:36:13 letter sent: Followup Recommended Ultrasound BI-RADS: 3 Probably benign
--- NOTE | 2023-11-15 | DI.MG.S_ITS ---
UNILATERAL LEFT DIGITAL DIAGNOSTIC MAMMOGRAM 3D/2D WITH ADDITIONAL VIEWS: 11/15/2023 CLINICAL: Additional evaluation requested from prior study. Comparison is made to exam dated: 10/24/2023 mammogram - [facility]. The left breast is heterogeneously dense, which may obscure small masses (category c / 51-75% glandular tissue). There is a focal asymmetry in the left breast at 1 o'clock anterior depth. This corresponds to finding seen on recent baseline screening mammogram. No other significant masses or calcifications are seen in the breast. IMPRESSION: INCOMPLETE: NEEDS ADDITIONAL IMAGING EVALUATION The focal asymmetry in the left breast is indeterminate. An ultrasound is recommended for further evaluation and is scheduled to immediately follow this examination. Based on the Tyrer Cuzick model (a risk assessment model) the patient's lifetime risk is 7.7% and her 10 year risk is 4.5%. According to the ACR, ACS, and NCCN guidelines, an annual breast MRI exam along with mammogram is recommended if the patient's lifetime risk is 20% or greater. This exam was interpreted at Station ID: [id number]. NOTE: For mammograms, a report in lay terms will be sent to the patient. Approximately 15% of breast malignancies will not be visualized mammographically. In the management of a palpable breast mass, a negative mammogram must not discourage biopsy of a clinically suspicious lesion. Electronically Signed By: Rosetta Dia M.D., Ph.D. eb/:11/15/2023 11:33:44 ACR BI-RADS Category 0: Incomplete 3340F
== END ==
PROVIDERS: PCP Student in an Organized Health Care Education/Training Program; Referring Provider Student in an Organized Health Care Education/Training Program; Visit Provider Student in an Organized Health Care Education/Training Program
DX: R92.8 Other abnormal and inconclusive findings on diagnostic imaging of breast (principal); R92.332 Mammographic heterogeneous density, left breast; N64.89 Other specified disorders of breast
CPT/HCPCS: 76642; 77065; G0279

== ENCOUNTER → 2023-11-16 12:44 | Outpatient (CLI) | payer MEDICARE, MEDICAID, SELFPAY ==
[2023-06-30 22:30] VITALS: BMI 27.9
--- NOTE | 2023-11-16 12:45 | DI.ECHO.S_ITS ---
[facility] : : [address] [place] : : [id number] : : Phone: [phone] Echocardiogram Report + + :Name: KYLE BLANCHARD Study Date: 11/16/2023 Height: 64 in : :[facility] ReadingLocation: Weight: 140 lb : : Gender: Female BSA: 1.7 m2 : :: 1955 Age: 68 yrs BP: 102/83 mmHg: :Reason For Study: CHRONIC SYSTOLIC CONGESTIVE HEART FAILURE : :Ordering Physician: DORI, : :MAXIMILIANO Performed By: Jonathon Carrillo : :Referring: MAXIMILIANO HILLIARD : + + Interpretation Summary 1) Mildly enlarged left ventricle wtih severely reduced systolic function (EF 20-25%). 2) Normal right ventricular size with mildly reduced function. 3) There is mild to moderate aortic stenosis (valve area 1.4cm2, mean gradient 9mmHg, severity ratio 0.48). 4) Compared to the Echo done 07/02/2023, bilateral pleural effusion have resolved on this study. Procedure: A two-dimensional transthoracic echocardiogram with color flow and Doppler was performed. The study quality was technically adequate. Comparison is made with the echocardiogram of 07/02/2023. The patient was in sinus rhythm with heart rates between 78-92 bpm during the exam. Left Ventricle: The left ventricle is mildly dilated. There is normal left ventricular wall thickness. The ejection fraction is estimated to be 20-25%. There is severe global hypokinesis of the left ventricle. Right Ventricle: The right ventricle is normal size. Right ventricular systolic function is mildly reduced. Atria: The left atrium is mildly dilated. Right atrial size is normal. The interatrial septum grossly appears intact with no obvious evidence for an atrial septal defect. Mitral Valve: The mitral valve is normal in structure and function. There is no mitral valve stenosis. There is no mitral regurgitation noted. Aortic Valve: There is mild aortic valve sclerosis. There is mild to moderate aortic stenosis. The peak aortic velocity is 1.97 m/sec. The aortic valve mean gradient is 9.2 mmHg. The calculated aortic valve area is 1.4 cm2. No aortic regurgitation is present. Tricuspid Valve: The tricuspid valve is normal. There is no tricuspid stenosis. No tricuspid regurgitation. Pulmonic Valve: The pulmonic valve is not well visualized. There is no pulmonic valvular stenosis. There is no pulmonic valvular regurgitation. Great Vessels: The aortic root is normal size. The ascending aorta could not be visualized. The inferior vena cava was not visualized. Pericardium/ Pleura There is no pericardial effusion. There is no pleural effusion. MMode/2D Measurements & Calculations LVIDd: 5.3 cm LVOT diam: 1.9 cm LVIDs: 4.7 cm Ao root diam: 2.8 cm FS: 11.7 % Ao Arch Diam (Prox Trans): 2.5 cm IVSd: 0.71 cm LVPWd: 0.94 cm LV strauss. diameter/BSA (cm/m^2): 3.1 LV sys. diameter/BSA (cm/m^2): 2.8 LA A2 area: 19.7 cm2 RA long axis: 3.9 cm LA A4 area: 16.2 cm2 RA area: 10.9 cm2 LA length (vol): 4.7 cm RA vol: 26.1 ml LA vol: 57.6 ml RA : 15.5 ml/m2 LA vol index: 34.2 ml/m2 RVD1 (basal): 3.1 cm RVD2 (mid): 2.6 cm TAPSE: 1.7 cm Doppler Measurements & Calculations Ao V2 max: 197.5 cm/sec LVOT Max Jerod: 82.8 cm/sec Ao V2 mean: 142.5 cm/sec LV V1 max P.7 mmHg Ao max P.6 mmHg LV V1 VTI: 18.9 cm Ao mean P.2 mmHg VLADIMIR(I,D): 1.4 cm2 Ao V2 VTI: 39.6 cm VLADIMIR(V,D): 1.2 cm2 sev ratio: 0.48 VLADIMIR indexed to BSA (cm^2/m^2): 0.83 MV E max jerod: 67.1 cm/sec PA V2 max: 84.8 cm/sec MV A max jerod: 117.8 cm/sec PA V2 mean: 64.2 cm/sec MV E/A: 0.57 PA mean P.8 mmHg Med Peak E' Jerod: 3.2 cm/sec PA pr(Accel): 43.0 mmHg E/E' med: 20.8 Lat Peak E' Jerod: 4.5 cm/sec E/E' lat: 15.0 E/e' average: 17.9 MV dec time: 0.24 sec SV(LVOT): 55.3 ml Reading Physician:01:56 PM
== END ==
PROVIDERS: PCP Student in an Organized Health Care Education/Training Program; Referring Provider Internal Medicine Cardiovascular Disease; Visit Provider Internal Medicine Cardiovascular Disease
DX: I35.0 Nonrheumatic aortic (valve) stenosis (principal); I35.8 Other nonrheumatic aortic valve disorders; I50.22 Chronic systolic (congestive) heart failure
CPT/HCPCS: 93306

== ENCOUNTER → 2024-06-12 08:06 | Outpatient (CLI) | payer MEDICARE, MEDICAID, SELFPAY ==
[2023-06-30 22:30] VITALS: BMI 27.9
--- NOTE | 2024-06-12 | DI.ECHO.S_ITS ---
[place] [facility] : : [address] : : [place] [address] : : [id number] : : Phone: [phone] Echocardiogram Report + + :Name: KYLE BLANCHARD Study Date: 06/12/2024 Height: 62 in : :[facility] ReadingLocation: Weight: 166 lb : : Gender: Female BSA: 1.8 m2 : :: 1955 Age: 68 yrs BP: 129/74 mmHg: :Reason For Study: SYSTOLIC HEART FAILURE : :Ordering Physician: Maximiliano : :Jono Hilliard Performed By: Jonathon Carrillo : :Referring: MAXIMILIANO HILLIARD : + + Interpretation Summary 1) Normal left ventricular thickness and size with low normal systolic function (EF 50-55%). 2) Normal right ventricular size with mildly reduced function. 3) There is mild to moderate aortic stenosis (valve area 1.2cm2, mean gradient 11mmHg, severity ratio 0.43). 4) Compared to the Echo done 11/16/2023, LVEF has improved from 20-25% to 50- 55% on this study. Procedure: A two-dimensional transthoracic echocardiogram with color flow and Doppler was performed. The study quality was technically good. Comparison is made with the echocardiogram of 11/16/2023. The patient was in normal sinus rhythm during the exam. Left Ventricle: The left ventricle is normal in size. There is normal left ventricular wall thickness. There is no ventricular septal defect visualized. The ejection fraction is estimated to be 50-55%. There are no focal wall motion abnormalities. Diastolic parameters suggest a relaxation abnormality of the left ventricle, consistent with probable normal filling pressures. Right Ventricle: The right ventricle is normal size. Right ventricular systolic function is mildly reduced. Atria: The left atrial size is normal. Right atrial size is normal. There is no Doppler evidence for an atrial septal defect. Mitral Valve: The mitral valve leaflets appear mildly thickened, but open well. There is no mitral regurgitation noted. Aortic Valve: There is moderate aortic valve sclerosis. A bicuspid aortic valve cannot be excluded. There is mild to moderate aortic stenosis. The peak aortic velocity is 2.16 m/sec. The aortic valve mean gradient is 11.2 mmHg. The calculated aortic valve area is 1.2 cm2. No aortic regurgitation is present. Tricuspid Valve: The tricuspid valve leaflets are thin and pliable. No tricuspid regurgitation. Pulmonic Valve: The pulmonic valve is normal in structure and function. There is no pulmonic valvular regurgitation. Great Vessels: The aortic root is normal size. The dimensions of the ascending aorta are normal. The pulmonary artery is normal size. The IVC is of normal diameter and collapses greater than 50% with a sniff. This suggests a low right atrial pressure of 3 mm Hg. Pericardium/ Pleura There is no pericardial effusion. There is no pleural effusion. MMode/2D Measurements & Calculations LVIDd: 4.6 cm LVOT diam: 1.9 cm LVIDs: 3.4 cm Ao root diam: 3.1 cm FS: 26.3 % asc Aorta Diam: 2.8 cm EPSS: 0.63 cm IVSd: 0.87 cm LVPWd: 0.93 cm LV strauss. diameter/BSA (cm/m^2): 2.6 LV sys. diameter/BSA (cm/m^2): 1.9 LA A2 area: 17.7 cm2 RA long axis: 4.0 cm LA A4 area: 15.4 cm2 RA area: 11.0 cm2 LA length (vol): 5.1 cm RA vol: 26.0 ml LA vol: 45.2 ml RA : 14.7 ml/m2 LA vol index: 25.6 ml/m2 IVC diam: 0.90 cm RVD1 (basal): 3.1 cm RVD2 (mid): 2.6 cm TAPSE: 1.8 cm Doppler Measurements & Calculations Ao V2 max: 215.6 cm/sec LVOT Max Jerod: 83.1 cm/sec Ao V2 mean: 161.5 cm/sec LV V1 max P.8 mmHg Ao max P.6 mmHg LV V1 VTI: 23.3 cm Ao mean P.2 mmHg VLADIMIR(I,D): 1.2 cm2 Ao V2 VTI: 54.7 cm VLADIMIR(V,D): 1.0 cm2 sev ratio: 0.43 VLADIMIR indexed to BSA (cm^2/m^2): 0.66 MV E max jerod: 83.3 cm/sec PA V2 max: 70.1 cm/sec MV A max jerod: 105.6 cm/sec PA V2 mean: 48.1 cm/sec MV E/A: 0.79 PA mean P.0 mmHg Med Peak E' Jerod: 4.8 cm/sec PA pr(Accel): 48.2 mmHg E/E' med: 17.4 Lat Peak E' Jerod: 5.3 cm/sec E/E' lat: 15.8 E/e' average: 16.6 MV dec time: 0.29 sec SV(LVOT): 63.3 ml Reading Physician:04:15 PM
[2024-06-12 09:15] LABS: Hematocrit 47.2 % (36-46); Hemoglobin 15.5 g/dL (12.0-16.0); Mean Corpuscular HGB Conc 32.9 % (30-36); Mean Corpuscular Hemoglobin 30.5 PG (26-34); Mean Corpuscular Volume 92.5 fL (80-100); Platelet Count 316 X10^3/uL (150-400); Red Cell Distribution Width 14.1 % (11.6-14.8); White Blood Cell Count 8.4 X10^3/uL (4.5-11.0)
[2024-06-12 09:37] LABS: BUN Creatinine Ratio 29.7 (6-22); Blood Urea Nitrogen 38 mg/dL (7-17); Calcium 9.9 mg/dL (8.4-10.2); Carbon Dioxide 29 mmol/L (22-32); Chloride 101 mmol/L (98-107); Cholesterol 217 mg/dL (140-199); Estimated Glomerular Filt Rate 45 mL/min (>60); Glucose 372 mg/dL (80-110); HDL Cholesterol 58 mg/dL (40-60); HEMOLYSIS < 15 (0-50); LDL Cholesterol Calculated 104 mg/dL (<100); Potassium 4.7 mmol/L (3.4-5.1); Sodium 137 mmol/L (137-145); Triglycerides 274 mg/dL (35-150)
== END ==
PROVIDERS: PCP Student in an Organized Health Care Education/Training Program; Referring Provider Internal Medicine Cardiovascular Disease; Visit Provider Internal Medicine Cardiovascular Disease
DX: I50.22 Chronic systolic (congestive) heart failure; I11.0 Hypertensive heart disease with heart failure; I35.0 Nonrheumatic aortic (valve) stenosis; I35.8 Other nonrheumatic aortic valve disorders
CPT/HCPCS: 36415; 80048; 80061; 85027; 93306

== ENCOUNTER → 2024-06-30 | Outpatient (CLI) | payer MEDICARE, MEDICAID, SELFPAY ==
[2023-06-30 22:30] VITALS: BMI 27.9
--- NOTE | 2024-06-30 12:02 | DI.MG.S_ITS ---
UNILATERAL LEFT DIGITAL DIAGNOSTIC MAMMOGRAM 3D/2D: 06/30/2024 CLINICAL: Short term follow up. Comparison is made to exam dated: 11/15/2023 mammogram - [facility]. The breasts are heterogeneously dense, which may obscure small masses (category c / 51-75% glandular tissue). This corresponds to finding seen on recent baseline screening mammogram. There is a focal asymmetry in the left breast at 1 o'clock anterior depth, stable since baseline mammogram 10/24/2023. No prior ultrasound correlate identified. No other significant masses or calcifications are seen in the breast. IMPRESSION: PROBABLY BENIGN Left breast focal asymmetry at 1 o'clock anterior depth seen initially on baseline mammogram, stable since October 2023. Finding is probably benign. Recommend follow-up mammogram in 6 months to demonstrate 1 year stability. Patient will be due for bilateral mammogram at that time. Findings and recommendations were conveyed to the patient during today's evaluation. Based on the Tyrer Cuzick model (a risk assessment model) the patient's lifetime risk is 7.7% and her 10 year risk is 4.5%. According to the ACR, ACS, and NCCN guidelines, an annual breast MRI exam along with mammogram is recommended if the patient's lifetime risk is 20% or greater. This exam was interpreted at Station ID: [id number]. NOTE: For mammograms, a report in lay terms will be sent to the patient. Approximately 15% of breast malignancies will not be visualized mammographically. In the management of a palpable breast mass, a negative mammogram must not discourage biopsy of a clinically suspicious lesion. Electronically Signed By: Rosetta Dia M.D., Ph.D. eb/:07/02/2024 08:22:07 letter sent: Followup Recommended ACR BI-RADS Category 3: Probably Benign
== END ==
LOC: MAMMO 12:01
PROVIDERS: PCP Student in an Organized Health Care Education/Training Program; Referring Provider Student in an Organized Health Care Education/Training Program; Visit Provider Student in an Organized Health Care Education/Training Program
DX: R92.8 Other abnormal and inconclusive findings on diagnostic imaging of breast (principal); N64.89 Other specified disorders of breast; R92.333 Mammographic heterogeneous density, bilateral breasts
CPT/HCPCS: 77065; G0279

== ENCOUNTER 2025-01-01 04:58 | Emergency (ER) | payer OTHER, MEDICAID, SELFPAY ==
[2023-06-30 22:30] VITALS: BMI 27.9
[2025-01-01] VITALS (8 sets, daily range): BP systolic 124–148; BP diastolic 58–69; PULSE 71–77; RESP 16; TEMP 36.4; O2SAT 88–96; BMI 28.3
--- NOTE | 2025-01-01 04:49 | ED.GENADULT ---
HPI - General Adult General Chief complaint: Back Pain/Injury Stated complaint: back pain no trauma Time Seen by Provider: 01/01/25 05:00 History of Present Illness HPI narrative: 69-year-old woman with a history of COPD, hypertension, hyperlipidemia, congestive heart failure, diabetes presents with 24 hours of low back pain. She awoke yesterday with pain and spasm in the mid low back approximately L1-L2 region with no prior trauma. No abdominal pain, dysuria, hematuria, vaginal discharge, constipation, nausea, vomiting. She thought the pain would go away over the course of the day, has not taken any pain medications. Around midnight took 2 muscle relaxers which did not help. She has been unable to sleep all night end up calling 911 with complaints of severe low back pain. It is midline not associated with radicular pain, there some minor bilateral paraspinous spasm. Pain is significant enough that she splinting and not able/willing to take a deep breath Related Data Home Medications ?Medication ?Instructions ?Recorded ?Confirmed albuterol sulfate 90 mcg/actuation 2 puff inhalation Q4-6H PRN Dyspnea 06/21/23 07/26/23 aerosol inhaler (Ventolin HFA) budesonide 0.5 mg/2 mL suspension 0.5 mg inhalation BID 06/21/23 07/26/23 for nebulization sacubitril 24 mg-valsartan 26 mg 1 tab PO BID 07/26/23 01/01/25 tablet (Entresto) spironolactone 25 mg tablet 12.5 mg PO DAILY 07/26/23 01/01/25 atorvastatin 10 mg tablet 10 mg PO DAILY 01/01/25 01/01/25 empagliflozin 25 mg tablet 25 mg PO DAILY 01/01/25 01/01/25 (Jardiance) furosemide 20 mg tablet 20 mg PO DAILY PRN edema 01/01/25 01/01/25 metformin 500 mg tablet 1,000 mg PO BID 01/01/25 01/01/25 metoprolol succinate 100 mg 100 mg PO DAILY 01/01/25 01/01/25 tablet,extended release 24 hr Previous Rx's ?Medication ?Instructions ?Recorded metoprolol succinate 25 mg 25 mg PO DAILY #30 tabs 07/03/23 tablet,extended release 24 hr lidocaine 5 % topical patch 1 patch topical DAILY #15 ea 01/01/25 oxycodone-acetaminophen 5 mg-325 1 tab PO Q6H PRN pain #14 tabs 01/01/25 mg tablet Allergies Allergy/AdvReac Type Severity Reaction Status Date / Time No Known Drug Allergies Allergy Unverified 07/26/23 14:09 Review of Systems Review of Systems Narrative: Pertinent positive and negative findings as per HPI Patient History Medical History (Updated 01/01/25 @ 06:42 by Soraida Mckinney MD) COPD (chronic obstructive pulmonary disease) Hyperlipidemia Hypertension Congestive heart failure Diabetes mellitus Social History household members: significant other and family Smoking Status: Never smoker alcohol intake: current Exam Initial Vital Signs Initial Vital Signs: Vital Signs Temperature 97.6 F 01/01/25 05:07 Pulse Rate 73 01/01/25 05:07 Respiratory Rate 16 01/01/25 05:07 Blood Pressure 124/69 01/01/25 05:07 Pulse Oximetry 94 01/01/25 05:07 Oxygen Delivery Method Room Air 01/01/25 05:07 General: Hurting enough that she is holding herself quite still in bed with breathing attempts to control pain. Able to give a complete and coherent history. Well-nourished well-developed HEENT: Moist mucous membranes, normal sclera with reactive pupils, Respiratory: Lungs are clear to auscultation, no wheezing no rales no rhonchi. Full and symmetrical air movement Cardiac: Regular rate and rhythm no murmurs no bruits Abdomen: Soft, nontender, no rebound or guarding, no flank pain Skin: Warm and dry, no rashes Neurologic: Grossly neurologically intact with no obvious asymmetries or abnormalities Spine: Midline tenderness L1, L2 area, no warmth or redness to the area Extremities: No trauma, clubbing of all fingers appreciated. straight leg raise does not exacerbate her pain. No paresthesias or weakness to lower extremities Psych: Cooperative, appropriate insight and affect Course Orders Ordered: ED Orders 01/01/25 05:06 XR lumbar spine 2-3V Stat 01/01/25 05:07 Complete Blood Count AUTO DIFF Stat Comprehensive Metabolic Panel Stat 01/01/25 05:08 Urinalysis and Microscopic Stat Hydromorphone HCl (Hydromorphone Hcl 0.5 Mg/0.5 Ml Syringe) 0.5 mg IV Q15MIN PRN PRN Reason: Pain, Last Admin: 01/01/25 05:23 Dose: 0.5 mg Discontinued Medications Ketorolac Tromethamine (Ketorolac 30 Mg/Ml Vial) 15 mg IV NOW ONE Stop: 01/01/25 05:07 Last Admin: 01/01/25 05:22 Dose: 15 mg Vital Signs Vital signs: Vital Signs - 8 hr 01/01/25 05:07 Temperature 97.6 F Pulse Rate 73 Respiratory Rate 16 Blood Pressure 124/69 Pulse Oximetry 94 Oxygen Delivery Method Room Air Medical Decision Making Lab Data 01/01/25 05:23 01/01/25 05:23 Labs: Lab Results 01/01/25 Range/Units 05:23 WBC 7.4 (4.5-11.0) X10^3/uL RBC 4.70 (4.0-5.2) X10^6/uL Hgb 14.4 (12.0-16.0) g/dL Hct 43.0 (36-46) % MCV 91.5 (80-100) fL MCH 30.7 (26-34) PG MCHC 33.5 (30-36) % RDW 14.2 (11.6-14.8) % Plt Count 228 (150-400) X10^3/uL Neut % (Auto) 79.4 H (50-75) % Lymph % (Auto) 9.7 L (25-40) % Wharton % (Auto) 8.9 (3-14) % Eos % (Auto) 1.2 L (2-4) % Baso % (Auto) 0.8 (0-2) % Neut # (Auto) 5900 (8788-9305) /uL Lymph # (Auto) 700 L (5019-7987) /uL Wharton # (Auto) 700 (0-900) /uL Eos # (Auto) 100 (0-450) /uL Baso # (Auto) 100 (0-100) /uL Sodium 138 (137-145) mmol/L Potassium 5.0 (3.4-5.1) mmol/L Chloride 101 (98-107) mmol/L Carbon Dioxide 29 (22-32) mmol/L BUN 44 H (7-17) mg/dL Creatinine 1.41 H (0.52-1.04) mg/dL Estimated GFR 40 L (>60) mL/min BUN/Creatinine Ratio 31.2 H (6-22) Glucose 152 H (70-99) mg/dL Calcium 9.5 (8.4-10.2) mg/dL Total Bilirubin 0.5 (0.2-1.3) mg/dL AST 25 (14-36) IU/L ALT 24 (<35) IU/L Alkaline Phosphatase 78 (38-126) U/L Total Protein 7.1 (6.3-8.2) g/dL Albumin 4.2 (3.5-5.0) g/dL Globulin 2.9 (1.7-4.1) g/dL Albumin/Globulin Ratio 1.4 (1.0-2.8) MDM Narrative Medical decision making narrative: CC: Severe midline L1-L2 back pain for 24 hours Complicating co-morbidities: COPD, congestive heart failure, diabetes, hypertension Data collected from: patient, medics Medical records reviewed: Hospitalized for acute congestive heart failure June of 2023. Discharge summary reviewed Differential considered: Spontaneous compression fracture, muscle spasm, kidney stone is considered however it really is midline rather than flank pain. AAA is considered but no obvious abdominal pain Exam documented above, pertinent findings include: Midline L1/2 pain without warmth or redness. No abdominal pain Lab Test results independently reviewed as above. Pertinent findings: CBC is unremarkable Chemistries show mild renal insufficiency not significantly off from her baseline, rhinorrhea under of labs are unremarkable Imaging studies independently reviewed: X-ray of the lumbar spine shows no evidence of compression fracture Treatments: IV Toradol and half a mg of Dilaudid Discussion: 69-year-old woman with 24 hours of acute midline low back pain without radicular findings. Has not tried medications at home. Comes in by medics because of the severity of the pain. Pain has been significantly improved with Toradol and half a mg of Dilaudid. Because of the acute onset, her age and the midline point tenderness possibility of a spontaneous fracture is considered and x-rays are reassuring. She does not have fever warmth redness or any blood work abnormalities to suggest epidural abscess or any type of epidural bleeding. We discussed continuing to use ibuprofen for anti-inflammatory. With shared decision-making she decided that a small prescription for narcotic for pain control rather than muscle relaxer for muscle spasm would likely be more appropriate. We discussed importance of stool softeners as with use of narcotics and appropriateness of the use with severe pain but not with chronic pain. She expresses understanding. At this point there was no indication of life-threatening abnormality, infection, fracture, cauda equina syndrome or reason for additional workup or evaluation today. She will be given a small amount of Percocet to use over the next couple of days. She is safe for discharge home Discharge Plan Departure Patient Disposition: Home Clinical Impression: Acute low back pain Qualifiers: Back pain laterality: midline Sciatica presence: without sciatica Qualified Code(s): M54.50 - Low back pain, unspecified Instructions: DI for Low Back Pain Activity Restrictions/Additional Instructions: Thank you for coming in today, I am sorry that you are suffering so much with this back pain. Your blood work was reassuring no signs of infection. Did do an x-ray of your spine to make sure that there was no compression fracture your obvious bony abnormalities. Were x-ray was reassuring You were given an anti-inflammatory as well as a narcotic through your IV, and both of these were significantly beneficial Using 400 mg of ibuprofen (2 [id number] pills) and 1 Tylenol every 6 hours can be very helpful in controlling pain. For severe pain using 400 mg of ibuprofen and 1 Percocet which has Tylenol plus oxycodone in it we will help. You may find that ice and heat are beneficial as well. If you do choose to use the Percocet for severe pain, narcotics to cause constipation and you will need the space softener. I have also given you a topical lidocaine patch in the emergency department. If you find that this is helpful, then please fill a prescription for the lidocaine patches as well If you find that you are getting worse or develop any new symptoms, please feel free to return to the emergency department for further evaluation. Prescriptions: New oxycodone-acetaminophen 5-325 mg tablet 1 tab PO Q6H PRN (Reason: pain) Qty: 14 0RF lidocaine 5 % adhesive patch,medicated 1 patch topical DAILY Qty: 15 0RF Rx Instructions: leave on most painful area for up to 12 hrs No Action metoprolol succinate 25 mg Tablet Extended Release 24 Hr 25 mg PO DAILY Qty: 30 0RF metformin 500 mg tablet 1,000 mg PO BID atorvastatin 10 mg tablet 10 mg PO DAILY metoprolol succinate 100 mg tablet extended release 24 hr 100 mg PO DAILY Jardiance 25 mg tablet 25 mg PO DAILY furosemide 20 mg tablet 20 mg PO DAILY PRN (Reason: edema) spironolactone 25 mg tablet 12.5 mg PO DAILY Entresto 24-26 mg tablet 1 tab PO BID budesonide 0.5 mg/2 mL suspension for nebulization 0.5 mg inhalation BID albuterol sulfate [Ventolin HFA] 90 mcg/actuation HFA aerosol inhaler 2 puff inhalation Q4-6H PRN (Reason: Dyspnea) Referrals: Serene Harrington PA-C [Primary Care Provider, Medical] Stand Alone Forms: Patient Portal/API
--- NOTE | 2025-01-01 05:06 | DI.RAD.S_ITS ---
PROCEDURE: XR LUMBAR SPINE 2-3V INDICATIONS: acutle pain midline L1/L2 level ? comp fx TECHNIQUE: 3 views of the lumbar spine were acquired. COMPARISON: None. FINDINGS: Bones: 5 [id number] vertebrae are present. There is 7 mm anterolisthesis of L4 on L5. No vertebral body compression fractures. Loss of disc height, degenerative endplate changes and bilateral facet hypertrophic changes are noted throughout lumbar spine more notably at L4-5 and L5-S1 levels. No suspicious bony lesions. Soft tissues: Overlying bowel gas pattern is normal. No suspicious soft tissue calcifications. IMPRESSION: 1. No acute vertebral body compression fracture. Grade 1 anterolisthesis of L4 on L5. Spondylitic changes throughout lumbar spine as above. No discrepancies from preliminary reading. Dictated by: Zheng Perez M.D. on 01/01/2025 at 9:03 Approved by: Zheng Perez M.D. on 01/01/2025 at 9:05
[2025-01-01] MEDS: KETOROLAC 30 MG/ML VIAL 15 MG IV (05:22)
[2025-01-01 05:30] LABS: Add Manual Diff / Slide Review NO; Hematocrit 43.0 % (36-46); Hemoglobin 14.4 g/dL (12.0-16.0); Lymphocytes Absolute Auto 700 /uL (1100-4500); Mean Corpuscular HGB Conc 33.5 % (30-36); Mean Corpuscular Hemoglobin 30.7 PG (26-34); Mean Corpuscular Volume 91.5 fL (80-100); Platelet Count 228 X10^3/uL (150-400)
[2025-01-01 05:42] LABS: Alanine Aminotransferase 24 IU/L (<35); Albumin 4.2 g/dL (3.5-5.0); Albumin Globulin Ratio 1.4 (1.0-2.8); Alkaline Phosphatase 78 U/L (38-126); Blood Urea Nitrogen 44 mg/dL (7-17); Calcium 9.5 mg/dL (8.4-10.2); Carbon Dioxide 29 mmol/L (22-32); Chloride 101 mmol/L (98-107); Estimated Glomerular Filt Rate 40 mL/min (>60); Globulin 2.9 g/dL (1.7-4.1); Glucose 152 mg/dL (70-99); HEMOLYSIS < 15 (0-50); Potassium 5.0 mmol/L (3.4-5.1); Sodium 138 mmol/L (137-145); Total Protein 7.1 g/dL (6.3-8.2)
[2025-01-01] MEDS: LIDOCAINE 5% PATCH 1 EACH TOP (06:54)
== END 2025-01-01 07:13 | disposition home or self-care (01) ==
PROVIDERS: Emergency Provider Emergency Medicine; PCP Student in an Organized Health Care Education/Training Program
DX: M54.50 Low back pain, unspecified (principal); J44.9 Chronic obstructive pulmonary disease, unspecified; I11.0 Hypertensive heart disease with heart failure; I50.9 Heart failure, unspecified; E11.9 Type 2 diabetes mellitus without complications; Z79.84 Long term (current) use of oral hypoglycemic drugs
CPT/HCPCS: 36415; 72100; 80053; 85025; 96374; 96375; 99284; J1171; J1885

== ENCOUNTER → 2025-01-16 11:55 | Outpatient (CLI) | payer OTHER, MEDICAID, SELFPAY ==
[2023-06-30 22:30] VITALS: BMI 27.9
--- NOTE | 2025-01-16 11:56 | DI.MG.S_ITS ---
MM diagnostic mammo BI: 01/16/2025. BI-RADS: 3 CLINICAL: 69-year old female for bilateral diagnostic mammogram that is a follow-up to diagnostic, left, digital, tomosynthesis on 06/30/2024. Tyrer-Cuzick lifetime risk of 14.4%. Current reported family history of breast cancer: maternal grandmother, mother and daughter. PRIOR EXAMS 06/30/2024, 11/15/2023, 10/24/2023. MAMMOGRAPHY TECHNIQUE: 2D and 3D (tomosynthesis) digital mammographic views obtained, with additional images as needed for full coverage. Current study was also evaluated with a Computer Aided Detection (CAD) system. DENSITY C. The breasts are heterogeneously dense, which may obscure small masses. MAMMOGRAPHY FINDINGS Right: MLO only, Upper, Posterior depth: An asymmetry seen on MLO view did not persist with additional imaging and is consistent with benign fibroglandular tissue. There are no suspicious masses, calcifications, or other findings in the breast. Left: Upper Outer at 1:00, Anterior depth: Previously described focal asymmetry is less conspicuous on the current examination compared to the screening mammogram on 10/24/2023. IMPRESSION: Right * No evidence of malignancy with benign findings. Left: Upper Outer at 1:00, Anterior depth * Probably Benign. RECOMMENDATIONS Right: MLO only, Upper, Posterior depth * Annual screening mammography in one year. Left: Upper Outer at 1:00, Anterior depth * Followup with diagnostic mammography in one year to demonstrate 2 year stability. COMMENTS: Findings and recommendations were conveyed to the patient during today's evaluation. OVERALL ASSESSMENT CATEGORY BI-RADS-3: Probably Benign. ELECTRONICALLY SIGNED: Renetta Oconnell M.D. on 01/16/2025 at 01:06:14 PM PT Interpreting Station ID: [id number]
== END ==
PROVIDERS: PCP Student in an Organized Health Care Education/Training Program; Referring Provider Student in an Organized Health Care Education/Training Program; Visit Provider Student in an Organized Health Care Education/Training Program
DX: R92.8 Other abnormal and inconclusive findings on diagnostic imaging of breast (principal); Z80.3 Family history of malignant neoplasm of breast; R92.333 Mammographic heterogeneous density, bilateral breasts
CPT/HCPCS: 77066; G0279

== ENCOUNTER → 2025-01-26 13:58 | Outpatient (CLI) | payer OTHER, MEDICAID, SELFPAY ==
[2023-06-30 22:30] VITALS: BMI 27.9
[2025-01-26 15:04] LABS: Blood Urea Nitrogen 24 mg/dL (7-17); Calcium 10.0 mg/dL (8.4-10.2); Carbon Dioxide 27 mmol/L (22-32); Chloride 103 mmol/L (98-107); Cholesterol 136 mg/dL (140-199); Estimated Glomerular Filt Rate 56 mL/min (>60); Glucose 207 mg/dL (70-99); HDL Cholesterol 48 mg/dL (40-60); HEMOLYSIS < 15 (0-50); Potassium 5.0 mmol/L (3.4-5.1); Sodium 141 mmol/L (137-145); Triglycerides 148 mg/dL (35-150)
[2025-01-26 15:15] LABS: Hematocrit 42.8 % (36-46); Hemoglobin 14.2 g/dL (12.0-16.0); Mean Corpuscular HGB Conc 33.1 % (30-36); Mean Corpuscular Hemoglobin 30.4 PG (26-34); Mean Corpuscular Volume 91.8 fL (80-100); Platelet Count 264 X10^3/uL (150-400)
== END ==
PROVIDERS: PCP Student in an Organized Health Care Education/Training Program; Referring Provider Internal Medicine Cardiovascular Disease; Visit Provider Internal Medicine Cardiovascular Disease
DX: I11.0 Hypertensive heart disease with heart failure (principal); I50.22 Chronic systolic (congestive) heart failure
CPT/HCPCS: 36415; 80048; 80061; 85027